=== PATIENT | female | born 1955 | race Caucasian/White ===

== ENCOUNTER 2018-12-24 16:41 | Inpatient (IN) ==
[2018-12-24] MEDS ORDERED: *HR* HYDROcodone/Acet 5/325 mg TABLET PO PRN (19:27)
[2018-12-24] MEDS ORDERED: *HR* OxyCODONE Immed Rel 5 MG TABLET PO PRN (19:27)
[2018-12-24] MEDS ORDERED: Acetaminophen 325 MG TABLET PO PRN (19:27)
[2018-12-24] MEDS ORDERED: Naloxone 0.4 MG/ML INJ IVP PRN (19:27)
[2018-12-24] MEDS: OXYCODONE Oral CONC 10 MG/0.5 ML ORAL.SYG SL PRN (22:25)
--- NOTE | 2018-12-24 23:22 | Internal Med History&Physical ---
Date of Encounter: 12/24/18 Time of Encounter: 21:32 Internal Medicine - H&P: HPI Chief complaint: Right great toe osteomyelitis Admitted From: Hospital to Hospital Transfer Plans for Post Hospital Care: Home History of present illness: Ms. Malloy is a 63 year old female Patient presented to [facility] for increased swelling, redness and pain in her right great toe for about 1 week. She has a history of injury to the toe about 8 months ago, and says that it is never fully healed and the toenail has fallen off. The pain radiates up to her knee, the toe has become dark in color at the tip and then underneath it as well. She has been seeing a doctor in [place] for this prior to moving here to live with her son. She had a temperature at home of 102 the day before admission. She is also noted some pu rulent drainage from the toe as well. She has a history of diabetes and has never had foot infections like this before. In the emergency room patient's vital signs were within normal limits. CBC was also within normal limits. Patient's initial BMP showed a potassium of 3.0 but otherwise no other abnormalities.. Blood sugar was not elevated at 107. A right foot x-ray was performed that showed findings suspicious for osteomyelitis of the first digit. Blood cultures were drawn, and the patient was started on clindamycin and ciprofloxacin. She was transferred to [facility] for further management. Upon my evaluation patient is resting comfortably in hospital bed in no acute distress. She confirms the history above. She denies chest pain, diarrhea and constipation. She has had some nausea and vomiting over the last 3 days but nothing recently. She has some abdominal soreness from vomiting. She moved here to be with her son after her daughter and she got . She admits to partaking in methamphetamine once, but says that she will never try it again. She denies smoking and alcohol use. She has a past medical history of hypertension, diabetes, COPD from secondhand smoke and restless leg syndrome. Family history significant for diabetes and heart disease, as well as lung and kidney cancer in the patient's mother. Her daughter from colon cancer recently. She is a full code. Past Med Surg Social Fam HX - Past Medical History Medical history: arthritis, CHF, diabetes, other Additional medical history: RESTLESS LEGG SYNDROME Psychiatric history: anxiety - Past Surgical History Surgical History: cholecystectomy, hysterectomy, knee replacement Additional surgical history: Discectomy to cervical spine. Cardiac catherization. BOTH KNEE REPLACED. - Social History Smoking Status: Never smoker Smokeless Tobacco Status: No Alcohol use: rarely Drug use: none - Family History Mother Hx Family Cardiac Disorders: Yes Hx Family Respiratory Disorders: Yes Hx Family Cancer: Yes Internal Medicine - H&P: Meds Potassium Chloride [Klor-Con 10] 10 meq PO DAILY 05/28/17 [History] Ropinirole HCl [Requip] 5 mg PO BID 05/28/17 [History] Furosemide [Lasix] 40 mg PO BID 01/11/18 [History] Dulaglutide [Trulicity] 0.75 mg SQ Q7D 12/24/18 [History] Gabapentin [Neurontin] 800 mg PO TID 12/24/18 [History] Allergy/AdvReac Type Severity Reaction Status Date / Time No Known Allergies Allergy Verified 11/15/18 15:11 All Systems PM: A 10-system review of systems was performed and is negative for pertinent findings except as documented above in the HPI. - Constitutional Vitals: Temp Pulse Resp BP Pulse Ox 97.8 F 57 17 115/73 96 12/24/18 23:15 12/24/18 23:15 12/24/18 23:15 12/24/18 23:15 12/24/18 23:15 General appearance: Present: cooperative, A&O X 3, pleasant, no acute distress, answers questions appropriately Exam: - - Head Head exam: Present: normal inspection - Eye Eye exam: Present: EOMI, normal appearance - Respiratory Respiratory exam: Present: CTAB. Absent: rales, respiratory distress, rhonchi, wheezes - Cardiovascular Cardiovascular exam: Present: RRR. Absent: diastolic murmur, systolic murmur - GI/Abdominal GI/Abdominal exam: Present: normal bowel sounds, soft, tenderness Additional comments: Epigastric tenderness with palpation - Extremities Exam Extremities exam: Present: tenderness, warm, radial pulses palpable and symmetrical. Absent: pedal edema Additional comments: Right great toe tenderness, mild tenderness up the leg to knee - Neurological Exam Neurological exam: Present: no focal deficits, strengths equal and symetr throughout. Absent: motor sensory deficit, facial droop, speech deficit - Skin Skin exam: Present: dry, normal color, warm. Absent: erythema Additional comments: Right great toe wrapped in dressing. - Assessment and Plan (1) Osteomyelitis Current Visit: No Status: Acute Assessment and plan: As seen on patient's foot x-ray. Blood cultures were drawn and patient was started on clindamycin and ciprofloxacin. Follow-up blood cultures when available Continue antibiotic therapy Podiatry consult in the morning Pain management as needed Qualifiers: Osteomyelitis type: unspecified type Osteomyelitis location: foot Laterality: right Qualified Code(s): M86.9 - Osteomyelitis, unspecified (2) Pain of right great toe Current Visit: No Status: Acute Assessment and plan: Secondary to osteomyelitis. Sublingual oxycodone as needed Treatment of osteomyelitis as above (3) Diabetes Current Visit: Yes Status: Acute Assessment and plan: Patient is not an insulin dependent diabetic Monitor sugars every 6 hours Diabetic diet until midnight, then nothing by mouth Low dose insulin sliding scale as needed Hold home meds. Qualifiers: Diabetes mellitus type: type 2 Diabetes mellitus penitentiary insulin use: without terminal operations manager use Diabetes mellitus complication status: with skin complications Diabetes mellitus complication detail: with foot ulcer Qualified Code(s): E11.621 - Type 2 diabetes mellitus with foot ulcer; L97.509 - Non-pressure chronic ulcer of other part of unspecified foot with unspecified severity (4) Restless leg syndrome Current Visit: Yes Status: Acute Assessment and plan: Chronic, patient takes ropinirole and gabapentin. Continue home meds (5) Diabetic neuropathy Current Visit: Yes Status: Acute Assessment and plan: Chronic, patient has decreased sensation in her lower extremities secondary to diabetes. Patient takes gabapentin at home. Continue home meds Qualifiers: Diabetes mellitus type: type 2 Diabetes mellitus complication detail: di abetic polyneuropathy Qualified Code(s): E11.42 - Type 2 diabetes mellitus with diabetic polyneuropathy (6) DVT prophylaxis Current Visit: Yes Status: Acute Assessment and plan: SCDs - Time Spent With Patient Total time spent is greater than 50% in coordination of care (as documented) at patient's floor/unit and/or counseling patient: Greater than 35 minutes
[2018-12-24] MEDS ORDERED: NON-FORMULARY MEDICATION 1 EACH EACH (Ropinirole Hcl [Requip] 5 MG) PO SCH (23:30)
[2018-12-25] MEDS: Gabapentin 400 MG CAPSULE PO SCH ×4 (00:34→21:34)
[2018-12-25] MEDS: rOPINIRole 3 MG, rOPINIRole 2 MG PO SCH ×3 (00:34→21:34)
[2018-12-25] MEDS: Clindamycin 900 MG/50 ML 900 MG/50 ML IV.SOLN IVPB SCH ×4 (00:34→23:45)
[2018-12-25 02:05] LABS: Hemoglobin 11.5 g/dL (11.5-15.4); Mean Corpuscular HGB Conc 33.8 g/dL (31.6-35.5); Mean Corpuscular Hemoglobin 29.7 pg (28.0-33.3); Mean Corpuscular Volume 87.9 fL (83.0-100.0); Mean Platelet Volume 9.6 fL (9.4-12.4); Platelet Count 194 K/mcL (140-400); Red Blood Count 3.87 M/mcL (3.82-4.97); Red Cell Distribution Width 13.7 % (11.5-14.5)
[2018-12-25 02:26] LABS: BUN/Creatinine Ratio 20 (6-26); Blood Urea Nitrogen 13 mg/dL (8-23); Calcium 8.8 mg/dL (8.6-10.3); Carbon Dioxide 25 mEq/L (23-29); Chloride 106 mEq/L (98-107); Glucose 120 mg/dL (70-105); Osmolality,Calculated 291 (280-300); Potassium 3.1 mEq/L (3.5-5.1); Sodium 140 mEq/L (136-145); eGFR For Non-African Americans > 60 (> 60)
[2018-12-25] MEDS ORDERED: Potassium Chloride 40 MEQ, Lidocaine 1% 2 ML in D5% in Water 500 ML IVPB ONE (02:30)
[2018-12-25 05:46] LABS: Magnesium 1.7 mg/dL (1.6-2.6)
--- NOTE | 2018-12-25 08:31 | Internal Med Progress Note ---
Hospitalist Progress Note - Encounter Date of Encounter: 12/25/18 Time of Encounter: 08:12 - Subjective Interval History: Patient seen and examined this morning it was. No acute overnight events. Complains of foot pain. No fevers chills nausea or vomiting. Patient sleepy. - Exam Vitals: Temp Pulse Resp BP Pulse Ox 98.4 F 73 16 134/73 95 12/25/18 07:49 12/25/18 07:49 12/25/18 07:49 12/25/18 07:49 12/25/18 07:49 Exam: General: In no acute distress. Respiratory exam: CTAB. no accessory muscle use, rales, rhonchi, wheezes Cardiovascular exam: RRR, +S1, +S2. no murmur, gallop, rubs. GI/Abdominal exam: Non-tender, Non-distended, normal bowel sounds, soft, no peritoneal signs. Extremities exam: no pedal edema, pulses palpable in b/l lower extremities. no calf tenderness Neurological exam: CN II-XII intact, AO X3, no focal deficits. Skin exam: Rt hallux ulcer without purulent drainage, mild tenderness. mild 2nd toe blackening. - Summary of Assessment and Plan Summary of Assessment and Plan: Rt toe ulcer - CXR suspcicous of osteomyelitis - Started on IV clindamycin and ciprofloxacin. continue for now. - Podiatry following. recommendation appreciated. CRP 17. MRI ordered to evaluate for osteomyelitis. Diabetes - c/w accuchecks and sliding scale Restless leg syndrome c/w home ropinirole Diabetic neuropathy - c/w home gabapentin DVT prophylaxis - SCDs - Time Spent with Patient Total time spent is greater than 50% in coordination of care (as documented) at patient's floor/unit and/or counseling patient: Internal Medicine: Result - Labs CBC & Chem 7: 12/25/18 01:44 12/25/18 01:44 Labs: Short CBC 12/25/18 Range/Units 01:44 WBC 5.5 (4.3-11.1) K/mcL Hgb 11.5 D (11.5-15.4) g/dL Hct 34.0 L (35.3-44.9) % Plt Count 194 (140-400) K/mcL BMP 12/25/18 01:44 Sodium 140 Potassium 3.1 L Chloride 106 Carbon Dioxide 25 BUN 13 Creatinine 0.64 Glucose 120 H Calcium 8.8 Consult Discharge Plan - Plan Referrals: NONE,PCP [Primary Care Provider] -
[2018-12-25] MEDS ORDERED: Gadolinium Contrast Agent (WT Based) IV PRN (09:08)
--- NOTE | 2018-12-25 09:14 | Podiatry Consult Note ---
Date of Encounter: 12/25/18 Time of Encounter: 09:11 Assessment and Plan (1) Diabetic infection of right foot Current visit: No Status: Acute 1. Patient evaluated and treated. She has an apparent acute on chronic right foot ulcer with infection. She is stable at this time, but appears that her symptoms on admission showed more systemic infection. It is unclear if she has been treated for osteomyelitis in the past. ESR and CRP ordered today. Will also order MRI to evaluate for possible abscess to the hallux and any evidence of osteomyelitis. Xray reviewed which shows no evidence of acute osseous injury, osteomyelitis, or soft tissue gas. Will determine surgical options vs local wound care after reviewing MRI and inflammatory markers. Continue with local wound care including betadine with dry dressing daily and IV antibiotics. Code(s): E11.628 - Type 2 diabetes mellitus with other skin complications; L08.9 - Local infection of the skin and subcutaneous tissue, unspecified SNOMED Code(s): 59364826 History of Present Illness Chief complaint: right foot wound infection HPI: Ms. Malloy is a 63 year old female presenting to [facility] with a chronic right 1st toe wound and infection. She reports that approximately 7 months ago she broke her toe, and 4 months ago a wound developed. She states that she was getting local wound care by a hemodialysis charge nurse in [place] and completed multiple rounds of antibiotics and local wound care. She reports that she had nausea and fever when admitted, but states she feels better now that she is in the hospital. She reports sharp pain and swelling to the right 1st toe. She reports cellulitis to her foot and ankle prior to starting IV antibiotics. She states that she would elect to have surgery if this meant the infection would not spread up her leg. She reports that her blood glucose level usually runs in the 130s. Past Med Surg Social Fam HX - Past Medical History Medical history: arthritis, CHF, diabetes, other Additional medical history: RESTLESS LEGG SYNDROME Psychiatric history: anxiety - Past Surgical History Surgical History: cholecystectomy, hysterectomy, knee replacement Additional surgical history: Discectomy to cervical spine. Cardiac catherization. BOTH KNEE REPLACED. - Social History Smoking Status: Never smoker Smokeless Tobacco Status: No Alcohol use: rarely Drug use: none - Family History Mother Hx Family Cardiac Disorders: Yes Hx Family Respiratory Disorders: Yes Hx Family Cancer: Yes Medications and Allergies Potassium Chloride [Klor-Con 10] 10 meq PO DAILY 05/28/17 [History] Ropinirole HCl [Requip] 5 mg PO BID 05/28/17 [History] Furosemide [Lasix] 40 mg PO BID 01/11/18 [History] Dulaglutide [Trulicity] 0.75 mg SQ Q7D 12/24/18 [History] Gabapentin [Neurontin] 800 mg PO TID 12/24/18 [History] Allergy/AdvReac Type Severity Reaction Status Date / Time No Known Allergies Allergy Verified 11/15/18 15:11 All Systems Reviewed: The remainder of the systems were reviewed and are negative Physical Exam - Constitutional Vitals: Temp Pulse Resp BP Pulse Ox 98.4 F 73 16 134/73 95 12/25/18 07:49 12/25/18 07:49 12/25/18 07:49 12/25/18 07:49 12/25/18 07:49 Exam: Alert, oriented x3, no acute distress. Vascular: DP and PT 2+ bilaterally. Capillary refill less than 3 seconds to all digits. Skin temperature warm to touch right hallux. Dermatology: Right hallux with full thickness ulceration and fat layer exposed 1.5cm x 2.0cm x 0.3cm. Periwound erythema to the level of IPJ of the hallux. Hyperkeratotic tissue at the wound margin. No probe to bone. No active drainage. Musculoskeletal: Tenderness right hallux with palpation. Possible fluctuance at plantar hallux. No crepitus. Moderate edema to the right hallux. Neuro: Sensations intact to light touch bilateral lower extremity. Results - Labs Result Diagrams: 12/25/18 01:44 12/25/18 01:44 Labs: Abnormal lab results Hct 34.0 % (35.3-44.9) L 12/25/18 01:44 Potassium 3.1 mEq/L (3.5-5.1) L 12/25/18 01:44 Glucose 120 mg/dL (70-105) H 12/25/18 01:44 POC Glucose 175 mg/dL (70-99) H 12/24/18 21:32 H & H 12/25/18 Range/Units 01:44 Hgb 11.5 D (11.5-15.4) g/dL Hct 34.0 L (35.3-44.9) % All other labs normal. Consult Discharge Plan - Plan Referrals: NONE,PCP [Primary Care Provider] -
[2018-12-25 09:30] LABS: C-Reactive Protein 17 mg/L (Less than 10)
[2018-12-25] MEDS: OXYCODONE Oral CONC 10 MG/0.5 ML ORAL.SYG SL PRN (20:19)
[2018-12-25 20:28] LABS: BUN/Creatinine Ratio 17 (6-26); Blood Urea Nitrogen 11 mg/dL (8-23); Calcium 9.5 mg/dL (8.6-10.3); Carbon Dioxide 30 mEq/L (23-29); Chloride 104 mEq/L (98-107); Glucose 103 mg/dL (70-105); Osmolality,Calculated 290 (280-300); Potassium 4.3 mEq/L (3.5-5.1); Sodium 140 mEq/L (136-145); eGFR For Non-African Americans > 60 (> 60)
[2018-12-26 06:20] LABS: Basophils # 0.1 K/mcL (0.0-0.2); Basophils % 1.1 %; Eosinophils # 0.4 K/mcL (0.0-0.6); Eosinophils % 8.3 %; Hematocrit 36.6 % (35.3-44.9); Hemoglobin 11.9 g/dL (11.5-15.4); Immature Granulocytes % 0.4 % (0-4); Lymphocytes # 2.1 K/mcL (0.6-4.6); Lymphocytes % 46.4 %; Mean Corpuscular HGB Conc 32.5 g/dL (31.6-35.5); Mean Corpuscular Volume 89.1 fL (83.0-100.0); Mean Platelet Volume 9.5 fL (9.4-12.4); Monocytes # 0.3 K/mcL (0.0-1.3); Monocytes % 7.6 %; Neutrophils # 1.6 K/mcL (1.6-8.9); Platelet Count 186 K/mcL (140-400); Red Blood Count 4.11 M/mcL (3.82-4.97); Red Cell Distribution Width 13.6 % (11.5-14.5); Segmented Neutrophils % 36.2 %
[2018-12-26 06:37] LABS: BUN/Creatinine Ratio 15 (6-26); Blood Urea Nitrogen 9 mg/dL (8-23); Calcium 9.3 mg/dL (8.6-10.3); Carbon Dioxide 29 mEq/L (23-29); Chloride 105 mEq/L (98-107); Glucose 109 mg/dL (70-105); Osmolality,Calculated 287 (280-300); Potassium 3.7 mEq/L (3.5-5.1); Sodium 139 mEq/L (136-145); eGFR For Non-African Americans > 60 (> 60)
[2018-12-26] MEDS: Gabapentin 400 MG CAPSULE PO SCH ×3 (08:42→21:44)
[2018-12-26] MEDS: rOPINIRole 3 MG, rOPINIRole 2 MG PO SCH ×2 (08:42→21:45)
--- NOTE | 2018-12-26 11:21 | Internal Med Progress Note ---
Hospitalist Progress Note - Encounter Date of Encounter: 12/26/18 Time of Encounter: 11:15 - Subjective Interval History: Patient seen and examined this morning at bedside. No acute overnight events. Drowsiness morning. Did get pain medication. However easily arousable and alert and oriented. Currently pain is tolerable denies any nausea vomiting f antonio or chills. Denies any constipation or diarrhea or urinary complaints. - Exam Vitals: Temp Pulse Resp BP Pulse Ox 97.4 F L 62 15 122/78 96 12/26/18 07:54 12/26/18 07:54 12/26/18 07:54 12/26/18 07:54 12/26/18 07:54 Exam: General: In no acute distress. Respiratory exam: CTAB. no accessory muscle use, rales, rhonchi, wheezes Cardiovascular exam: RRR, +S1, +S2. no murmur, gallop, rubs. GI/Abdominal exam: Non-tender, Non-distended, normal bowel sounds, soft, no peritoneal signs. Extremities exam: no pedal edema, pulses palpable in b/l lower extremities. no calf tenderness Neurological exam: CN II-XII intact, AO X3, no focal deficits. Skin exam: Rt hallux ulcer without purulent drainage, mild tenderness. mild 2nd toe blackening. - Summary of Assessment and Plan Summary of Assessment and Plan: Rt toe ulcer - MRI with osteomyelitis of distal phalanx of 1st digit - c/w clindamycin and ciprofloxacin. Will consult Infectious disease. - Podiatry following. recommendation appreciated. - Decrease pain regimen Diabetes - c/w accuchecks and sliding scale Restless leg syndrome c/w home ropinirole Diabetic neuropathy - c/w home gabapentin DVT prophylaxis - SCDs - Time Spent with Patient Total time spent is greater than 50% in coordination of care (as documented) at patient's floor/unit and/or counseling patient: Internal Medicine: Result - Labs CBC & Chem 7: 12/26/18 05:44 12/26/18 05:44 Labs: Short CBC 12/26/18 Range/Units 05:44 WBC 4.5 (4.3-11.1) K/mcL Hgb 11.9 (11.5-15.4) g/dL Hct 36.6 (35.3-44.9) % Plt Count 186 (140-400) K/mcL Neutrophils # 1.6 (1.6-8.9) K/mcL BMP 12/25/18 12/26/18 19:48 05:44 Sodium 140 139 Potassium 4.3 D 3.7 Chloride 104 105 Carbon Dioxide 30 H 29 BUN 11 9 Creatinine 0.64 0.59 L Glucose 103 109 H Calcium 9.5 9.3 - Impressions Impressions Foot MRI 12/26/18 09:08 IMPRESSION: 1. Ulceration and sinus tract with subjacent partial osseous destruction and osteomyelitis of the tuft of the distal phalanx of the 1st digit. 2. Cellulitis of the right great toe and remainder of the foot. Mild myositis of the visualized intertarsal musculature. No discrete organized fluid collection identified. 3. Marrow edema within the 4th metatarsal diaphysis, likely stress related marrow edema. No displaced stress fracture identified at this point. Mild marrow edema to a lesser degree at the proximal 2nd and 3rd metatarsals likely degenerative. 4. Degenerative changes as detailed above. The findings were sent to the Radiology Results [facility] at 7:58 am on 12/26/2018 to be communicated to a licensed caregiver. D/ / 12/26/2018 08:26:53 Gabriel Duval MD / [email or web address] Interpreting Provider: Gabriel Duval MD - VTE Documentation of Mechanical Device: Intermittent pneumatic compression device Consult Discharge Plan - Plan Referrals: NONE,PCP [Primary Care Provider] -
--- NOTE | 2018-12-26 11:54 | Infectious Disease Consult ---
Date of Encounter: 12/26/18 Time of Encounter: 11:52 Assessment and Plan (1) Osteomyelitis Status: Acute Assessment and plan: Location: Right great toe. Causative organism: Unclear. Likely secondary to chronic nonhealing diabetic foot ulcer. X-ray of the right foot showed findings consistent with osteoarthritis of the first digit. 5 right foot showed findings consistent with osteo-myelitis of the distal phalanx of the first digit and cellulitis. ESR elevated at 52 with a CRP of 17. Podiatry consult. Planning for operative intervention tomorrow. Please send specimens for pathology and culture (aerobic, anaerobic, AFB, and fungal). Currently on clindamycin and Cipro. Recommendations: Await blood cultures. Await intra-op findings/cultures. Wound care and activity per the Podiatry team. Recommend psychiatry to evaluate. Discontinue Clindamycin and Cipro. No sepsis criteria. Hold additional antibiotics until cultures obtained tomorrow. If the patient becomes febrile/takes a turn to the worse, re-start antibiotics as beliw. Start Vancomycin IV post-op. Pharmacy to dose. Goal trough ~15. Start Zosyn 3.375 g IV every 8 hours post-op. Duration of treatment depends on the clinical picture, but likely total 6 weeks. Monitor renal function for drug toxicity and is just antibiotics. radiology services manager to assist with discharge planning. Avoid insertion of long-term IV access until final antibiotic regimen is determined. Qualifiers: Osteomyelitis type: unspecified type Osteomyelitis location: foot Laterality: right Qualified Code(s): M86.9 - Osteomyelitis, unspecified (2) Diabetic infection of right foot Status: Acute Assessment and plan: Location: Right foot great toe. Causative organism: Unclear. Likely secondary to chronic non-healing ulcer. Podiatry consulted. Currently on Clinda and Cipro. (3) Diabetic neuropathy Status: Acute Qualifiers: Diabetes mellitus type: type 2 Diabetes mellitus complication detail: diabetic polyneuropathy Qualified Code(s): E11.42 - Type 2 diabetes mellitus with diabetic polyneuropathy (4) Restless leg syndrome Status: Acute (5) Diabetes Status: Acute Qualifiers: Diabetes mellitus type: type 2 Diabetes mellitus terminal manager insulin use: without terminal manager use Diabetes mellitus complication status: with skin complications Diabetes mellitus complication detail: with foot ulcer Qual ified Code(s): E11.621 - Type 2 diabetes mellitus with foot ulcer; L97.509 - Non-pressure chronic ulcer of other part of unspecified foot with unspecified severity (6) Depression Status: Acute Assessment and plan: The patient states she was on antidepressant medications prior to coming to [place]. She states she has not had her medications for about 4 months she came here. Consider psychiatry to evaluate. Qualifiers: Depression Type: unspecified Qualified Code(s): F32.9 - Major depressive disorder, single episode, unspecified Infectious Disease HPI - Data of Consult Patient: new to practice Consult date: 12/26/18 Requesting Physician: Alina Clark MD Primary Care Provider: PCP NONE - Consult Narrative Reason for consult: Right foot infection History of present illness: Ms. Malloy is a 63 year old female with a past medical history CHF, COPD, diabetes with neuropathy, GERD, hypertension, restless leg syndrome, bilateral total knee replacements. The patient was admitted to the hospital 12/24/18 for right great toe infection. We are consulted 12/26/18 for further workup and treatment recommendations for right foot infection. Briefly, the patient is a 63-year-old female with a past medical history as stated above. The patient presented to [facility] for evaluation of right great toe infection after she noticed increased redness, pain, and swelling for the past week or so. The day prior to presentation, she developed a fever of 102 with nausea with vomiting. Upon arrival, she was afebrile and hemodynamically stable. Her white blood cell count is normal. Lactic acid and renal function were within normal limits. Right foot x-ray showed osteo-myelitis of the first digit. Blood cultures were obtained 2 sets are no growth to date. She was started on Cipro and clindamycin and transferred here for further evaluation. Since admission, the patient has remained afebrile and hemodynamically stable. Her ESR was elevated at 52 with a CRP of 17. She was evaluated by podiatry who recommended MRI that showed osteoarthritis of the distal phalanx of the first digit and cellulitis. Currently, she is on Cipro and clindamycin. We have been asked to evaluate and make further recommendations. During my exam today, the patient states that about 8 months ago she sustained an injury to the right great toe that resulted in a fracture. She states she was seen in [place] by a provider twice and given antibiotics by mouth. She states since then she continues to have some issues with nonhealing of the wound . Over the past 2 weeks she states she has had increased pain and redness and swelling with some purulent drainage on the distal tip of the toe. She reports fevers that started 2 days prior to admission. Reports some chills and rigors associated with the fevers. Denies any congestion, earache, or sore throat. Denies chest pain, shortness of breath, or cough. Reports some nausea with vomiting 1 the day prior to admission. She reports some nausea this morning. She complains of pain in the right foot and states her some redness streaking up her leg. She states her appetite has been okay. She states her blood sugars are well-controlled. She denies any oral thrush or new skin lesions except as mentioned above. She does tell me that she is typically treated for depression, but states she has not had her medication since she moved here. The patient lives at home with her son. She moved here about 4 months ago after her daughter . She is not working outside the home. She states she used methamphetamine once and is very ashamed that she use it and swears she will never do it again. She denies any tobacco or alcohol use. She normally resides in [place] and is planning on going back there after her surgery because she does not want to live with her son anymore. She states there are dogs in the home where she lives currently, but denies any bites or scratches. She denies any chronic infectious diseases. CC: Alina Clark MD Past Med Surg Social Fam HX - Past Medical History Attestation: Yes The following information was validated with the patient. Source: patient, old records reviewed, nursing notes reviewed Medical history: arthritis, CHF, diabetes, other Additional medical history: RESTLESS LEGG SYNDROME Psychiatric history: anxiety - Past Surgical History Surgical History: cholecystectomy, hysterectomy, knee replacement Additional surgical history: Discectomy to cervical spine. Cardiac catherization. BOTH KNEE REPLACED. - Social History Smoking Status: Never smoker Smokeless Tobacco Status: No Alcohol use: rarely Drug use: none - Family History Mother Hx Family Cardiac Disorders: Yes Hx Family Respiratory Disorders: Yes Hx Family Cancer: Yes Infectious Disease-CN:Meds Potassium Chloride [Klor-Con 10] 10 meq PO DAILY 05/28/17 [History] Ropinirole HCl [Requip] 5 mg PO BID 05/28/17 [History] Furosemide [Lasix] 40 mg PO BID 01/11/18 [History] Dulaglutide [Trulicity] 0.75 mg SQ FR 12/24/18 [History] Gabapentin [Neurontin] 800 mg PO TID 12/24/18 [History] Allergy/AdvReac Type Severity Reaction Status Date / Time No Known Allergies Allergy Verified 12/25/18 15:47 All systems: reviewed and no additional remarkable complaints except as stated Exam - Constitutional Vitals: Temp Pulse Resp BP Pulse Ox 98.8 F 75 14 152/79 94 12/26/18 11:34 12/26/18 11:34 12/26/18 11:34 12/26/18 11:34 12/26/18 11:34 Infectious Disease CN: Results - Labs CBC & Chem 7: 12/26/18 05:44 12/26/18 05:44 Serology: Serology 12/26/18 12/26/18 12/25/18 Range/Units 05:44 05:44 19:48 WBC 4.5 (4.3-11.1) K/mcL RBC 4.11 (3.82-4.97) M/mcL Hgb 11.9 (11.5-15.4) g/dL Hct 36.6 (35.3-44.9) % MCV 89.1 (83.0-100.0) fL MCH 29.0 (28.0-33.3) pg MCHC 32.5 (31.6-35.5) g/dL RDW 13.6 (11.5-14.5) % Plt Count 186 (140-400) K/mcL MPV 9.5 (9.4-12.4) fL Immature Gran % 0.4 (0-4) % Seg Neutrophils % 36.2 % Lymphocytes % 46.4 % Monocytes % 7.6 % Eosinophils % 8.3 % Basophils % 1.1 % Neutrophils # 1.6 (1.6-8.9) K/mcL Lymphocytes # 2.1 (0.6-4.6) K/mcL Monocytes # 0.3 (0.0-1.3) K/mcL Eosinophils # 0.4 (0.0-0.6) K/mcL Basophils # 0.1 (0.0-0.2) K/mcL ESR (0-15) mm/hr Sodium 139 140 (136-145) mEq/L Potassium 3.7 4.3 D (3.5-5.1) mEq/L Chloride 105 104 (98-107) mEq/L Carbon Dioxide 29 30 H (23-29) mEq/L BUN 9 11 (8-23) mg/dL Creatinine 0.59 L 0.64 (0.60-1.20) mg/dL Est GFR ( Amer) > 60 > 60 (> 60) Est GFR (Non-Af Amer) > 60 > 60 (> 60) BUN/Creatinine Ratio 15 17 (6-26) Glucose 109 H 103 (70-105) mg/dL POC Glucose (70-99) mg/dL Calculated Osmolality 287 290 (280-300) Calcium 9.3 9.5 (8.6-10.3) mg/dL Magnesium (1.6-2.6) mg/dL C-Reactive Protein (Less than 10) mg/L 12/25/18 12/25/18 12/25/18 Range/Units 19:13 16:24 11:54 WBC (4.3-11.1) K/mcL RBC (3.82-4.97) M/mcL Hgb (11.5-15.4) g/dL Hct (35.3-44.9) % MCV (83.0-100.0) fL MCH (28.0-33.3) pg MCHC (31.6-35.5) g/dL RDW (11.5-14.5) % Plt Count (140-400) K/mcL MPV (9.4-12.4) fL Immature Gran % (0-4) % Seg Neutrophils % % Lymphocytes % % Monocytes % % Eosinophils % % Basophils % % Neutrophils # (1.6-8.9) K/mcL Lymphocytes # (0.6-4.6) K/mcL Monocytes # (0.0-1.3) K/mcL Eosinophils # (0.0-0.6) K/mcL Basophils # (0.0-0.2) K/mcL ESR (0-15) mm/hr Sodium (136-145) mEq/L Potassium (3.5-5.1) mEq/L Chloride (98-107) mEq/L Carbon Dioxide (23-29) mEq/L BUN (8-23) mg/dL Creatinine (0.60-1.20) mg/dL Est GFR ( Amer) (> 60) Est GFR (Non-Af Amer) (> 60) BUN/Creatinine Ratio (6-26) Glucose (70-105) mg/dL POC Glucose 104 H 97 95 (70-99) mg/dL Calculated Osmolality (280-300) Calcium (8.6-10.3) mg/dL Magnesium (1.6-2.6) mg/dL C-Reactive Protein (Less than 10) mg/L 12/25/18 12/25/18 12/25/18 Range/Units 07:47 01:44 01:44 WBC (4.3-11.1) K/mcL RBC (3.82-4.97) M/mcL Hgb (11.5-15.4) g/dL Hct (35.3-44.9) % MCV (83.0-100.0) fL MCH (28.0-33.3) pg MCHC (31.6-35.5) g/dL RDW (11.5-14.5) % Plt Count (140-400) K/mcL MPV (9.4-12.4) fL Immature Gran % (0-4) % Seg Neutrophils % % Lymphocytes % % Monocytes % % Eosinophils % % Basophils % % Neutrophils # (1.6-8.9) K/mcL Lymphocytes # (0.6-4.6) K/mcL Monocytes # (0.0-1.3) K/mcL Eosinophils # (0.0-0.6) K/mcL Basophils # (0.0-0.2) K/mcL ESR 52 H (0-15) mm/hr Sodium 140 (136-145) mEq/L Potassium 3.1 L (3.5-5.1) mEq/L Chloride 106 (98-107) mEq/L Carbon Dioxide 25 (23-29) mEq/L BUN 13 (8-23) mg/dL Creatinine 0.64 (0.60-1.20) mg/dL Est GFR ( Amer) > 60 (> 60) Est GFR (Non-Af Amer) > 60 (> 60) BUN/Creatinine Ratio 20 (6-26) Glucose 120 H (70-105) mg/dL POC Glucose 106 H (70-99) mg/dL Calculated Osmolality 291 (280-300) Calcium 8.8 (8.6-10.3) mg/dL Magnesium 1.7 (1.6-2.6) mg/dL C-Reactive Protein 17 H (Less than 10) mg/L 12/25/18 12/24/18 Range/Units 01:44 21:32 WBC 5.5 (4.3-11.1) K/mcL RBC 3.87 (3.82-4.97) M/mcL Hgb 11.5 D (11.5-15.4) g/dL Hct 34.0 L (35.3-44.9) % MCV 87.9 (83.0-100.0) fL MCH 29.7 (28.0-33.3) pg MCHC 33.8 (31.6-35.5) g/dL RDW 13.7 (11.5-14.5) % Plt Count 194 (140-400) K/mcL MPV 9.6 (9.4-12.4) fL Immature Gran % (0-4) % Seg Neutrophils % % Lymphocytes % % Monocytes % % Eosinophils % % Basophils % % Neutrophils # (1.6-8.9) K/mcL Lymphocytes # (0.6-4.6) K/mcL Monocytes # (0.0-1.3) K/mcL Eosinophils # (0.0-0.6) K/mcL Basophils # (0.0-0.2) K/mcL ESR (0-15) mm/hr Sodium (136-145) mEq/L Potassium (3.5-5.1) mEq/L Chloride (98-107) mEq/L Carbon Dioxide (23-29) mEq/L BUN (8-23) mg/dL Creatinine (0.60-1.20) mg/dL Est GFR ( Amer) (> 60) Est GFR (Non-Af Amer) (> 60) BUN/Creatinine Ratio (6-26) Glucose (70-105) mg/dL POC Glucose 175 H (70-99) mg/dL Calculated Osmolality (280-300) Calcium (8.6-10.3) mg/dL Magnesium (1.6-2.6) mg/dL C-Reactive Protein (Less than 10) mg/L - VTE Documentation of Mechanical Device: Intermittent pneumatic compression device Consult Discharge Plan - Plan Referrals: NONE,PCP [Primary Care Provider] - - Attending Attestation I have personally performed a face to face evaluation on this patient. I have reviewed and agree with the care plan. History and Exam by me shows: Assessment and plan: 1.osteomyelitis of the right great toe causative organism not clear 2.diabetic foot ulcer 3.diabetic neuropathy 4.depression 5. Restless leg syndrome Await blood cultures. Await intra-op findings/cultures. Wound care and activity per the Podiatry team. Discontinue Clindamycin and Cipro. Start Vancomycin IV post-op. Pharmacy to dose. Goal trough ~15. Start Zosyn 3.375 g IV every 8 hours post-op. Duration of treatment depends on the clinical picture, but likely total 6 weeks. Monitor renal function for drug toxicity and is just antibiotics.
--- NOTE | 2018-12-26 12:59 | Podiatry Progress Note ---
Date of Encounter: 12/26/18 Time of Encounter: 11:50 - Assessment and Plan (1) Diabetic infection of right foot Current Visit: No Status: Acute Assessment: -Right hallux with full thickness ulceration and fat layer exposed 1.5cm x 2.0cm x 0.3cm. Periwound erythema to the level of IPJ of the hallux. Hyperkeratotic tissue at the wound margin. No probe to bone. No active drainage. -Right #2 with necrotic tissue distal aspect. -2/4 PT/DP pulses -Cap refill immediate to all digits -ESR 52, CRP 17 -WBC 4.5 -MRI showed evidence of: 1. Ulceration and sinus tract with subjacent partial osseous destruction and osteomyelitis of the tuft of the distal phalanx of the 1st digit. 2. Cellulitis of the right great toe and remainder of the foot. Mild myositis of the visualized intertarsal musculature. No discrete organized fluid collection identified. 3. Marrow edema within the 4th metatarsal diaphysis, likely stress related marrow edema. No displaced stress fracture identified at this point. Mild marrow edema to a lesser degree at the proximal 2nd and 3rd metatarsals likely degenerative. 4. Degenerative changes as detailed above. Plan: -Site flushed with sterile .9NS and pat dry -Betadine dry dressing applied using 4x4 and Kerlix, secured with tape -Patient to have I&D right 1st toe possible amputation with Dr. Bernal tomorrow 12/27/2018 -NPO after midnight -Will continue to monitor Subjective Interval history: Patient resting, aroused easily with verbal stimuli, oriented x 3. No acute distress noted. Patient denies any chest pain or shortness of breath. She does report pain right lower extremity that has been there for weeks. She denies any fever, chills, nausea, vomiting, or diarrhea. Objective - Vital Signs Vital Signs: Vital Signs Temp Pulse Resp BP Pulse Ox 12/26/18 11:34 98.8 F 75 14 152/79 94 12/26/18 07:54 97.4 F L 62 15 122/78 96 12/26/18 04:40 97.7 F 66 17 129/82 94 12/25/18 23:36 97.4 F L 69 16 135/80 97 12/25/18 19:10 98.1 F 68 14 135/83 98 12/25/18 16:25 98.8 F 79 16 144/89 98 Intake and Output 12/25/18 12/26/18 12/26/18 23:59 07:59 15:59 Intake Total 700 / 700 148.5 / 148.5 340 / 340 Balance 700 / 700 148.5 / 148.5 340 / 340 Intake: IV Fluids 250 / 250 148.5 / 148.5 100 / 100 Cipro Premix 400 MG/200 ML 400 200 / 200 98.5 / 98.5 100 / 100 mg In 200 ml @ 200 mls/hr IVPB Q[facility]HR [facility] Rx#:[id number] Cleocin Premix 900 MG/50 ML 900 50 / 50 50 / 50 mg In 50 ml @ 50 mls/hr IVPB Q8HR [facility] Rx#:[id number] Oral 450 / 450 240 / 240 Other: Meal Dinner Breakfast Percent of Meal Consumed 75% 80% # Voids 1 Weight 84.2 kg Blood Glucose* 104 93 - Exam Exam: Constitutional: Resting, aroused easily, oriented x 3, no acute distress noted Vascular: 2/4 DP/PT pulses bilaterally. Cap refill immediate to all digits. Skin warm from toes to tibia. Neurological: Sensation diminished bilateral lower extremities, proprioception abnormal dorsiflexion/plantar flexion Dermatological: Right hallux with full thickness ulceration and fat layer exp osed 1.5cm x 2.0cm x 0.3cm. Periwound erythema to the level of IPJ of the hallux. Hyperkeratotic tissue at the wound margin. No probe to bone. No active drainage. Right #2 with necrotic tissue distal aspect. Musculoskeletal: 4/5 muscle strength, normal tone - Lab Result Diagrams: 12/26/18 05:44 12/26/18 05:44 Labs: Abnormal lab results ESR 52 mm/hr (0-15) H 12/25/18 01:44 Creatinine 0.59 mg/dL (0.60-1.20) L 12/26/18 05:44 Glucose 109 mg/dL (70-105) H 12/26/18 05:44 POC Glucose 104 mg/dL (70-99) H 12/25/18 19:13 C-Reactive Protein 17 mg/L (Less than 10) H 12/25/18 01:44 - VTE Documentation of Mechanical Device: Intermittent pneumatic compression device Consult Discharge Plan - Plan Referrals: NONE,PCP [Primary Care Provider] -
--- NOTE | 2018-12-26 18:05 | Anesthesia Evaluation PreOp ---
<Elva Chavez - Last Filed: 12/26/18 21:41> Date of Encounter: 12/26/18 - Past History Planned Operation: I&D right 1st toe possible amputation Cardiac History: CHF Pulmonary History: Asthma CONDUIT WORKER History: Other (restless leg syndrome, depression, diabetic neuropathy) Other Medical History: Diabetes Type II Anesthesia History: Past Anesthesia (cholecystectomy, hysterectomy, knee replacement bilaterally, Discectomy c-spine, cardiac catherization) Alcohol Use: rarely Drug use: none Medications and Allergies Potassium Chloride [Klor-Con 10] 10 meq PO DAILY 05/28/17 [History] Ropinirole HCl [Requip] 5 mg PO BID 05/28/17 [History] Furosemide [Lasix] 40 mg PO BID 01/11/18 [History] Dulaglutide [Trulicity] 0.75 mg SQ FR 12/24/18 [History] Gabapentin [Neurontin] 800 mg PO TID 12/24/18 [History] Allergy/AdvReac Type Severity Reaction Status Date / Time No Known Allergies Allergy Verified 12/25/18 15:47 - Meds/Allergy Pre-op Review Medications Reviewed: Yes Allergies Reviewed: Yes Beta Blockers on Current Med List: No Anesthesia Results - Labs 12/26/18 05:44 12/26/18 05:44 Anesthesia Exam Last Vital Signs Temp 98.0 F 12/26/18 16:49 Pulse 80 12/26/18 16:49 Resp 16 12/26/18 16:49 BP 151/88 12/26/18 16:49 Pulse Ox 95 12/26/18 16:49 Weight: 84 kg <Erich Wasserman - Last Filed: 12/27/18 16:15> Date of Encounter: 12/27/18 Time of Encounter: 16:15 - Past History Cardiac History: CHF Pulmonary History: Asthma CONDUIT WORKER History: Other Other Medical History: Diabetes Type II Anesthesia History: Past Anesthesia : No Alcohol Use: rarely Drug use: none Anesthesia Results - Labs 12/26/18 05:44 12/26/18 05:44 Anesthesia Exam Height: 5'5 NPO (# of Hours): MN Pain Scale: 0 - HEENT Pupil (Motor): Pupils equal, EOMI Mallampati: II Teeth: Normal Oral Opening: Greater than 3 - CONDUIT WORKER LOC: Oriented CONDUIT WORKER Motor: Normal RUE, Normal LUE, Normal RLE, Normal LLE, Normal Face CONDUIT WORKER Sensory: Normal: RUE, LUE, RLE, LLE, Face - Cardiac Rhythm: Regular JVD: No Carotid Bruit: No - Pulmonary Breath Sounds: bilateral Clear Respiratory Effort: Symmetrical Anesthesia Assess/Plan ASA Score: 3 (CHF DM Asthma) Level of consciousness: Cooperative, Oriented Anesthetic Plan: MAC Autologous Blood: No Monitoring Plan: Standard Monitors Recovery Plan: Other (Discussed MAC, possible GA, agrees to proceed)
[2018-12-26] MEDS: OXYCODONE Oral CONC 10 MG/0.5 ML ORAL.SYG SL PRN (21:45)
[2018-12-27] MEDS: OXYCODONE Oral CONC 10 MG/0.5 ML ORAL.SYG SL PRN (07:08)
[2018-12-27] MEDS: Gabapentin 400 MG CAPSULE PO SCH ×3 (09:45→20:43)
[2018-12-27] MEDS: rOPINIRole 3 MG, rOPINIRole 2 MG PO SCH ×2 (09:45→20:44)
--- NOTE | 2018-12-27 10:35 | Infectious Disease Progress No ---
Date of Encounter: 12/27/18 Time of Encounter: 10:32 - Assessment and Plan (1) Osteomyelitis Current Visit: Yes Status: Acute Location: Right great toe. Causative organism: Unclear. Previous wound cultures in November were positive for Enterobacter cloacae and GBS. Likely secondary to chronic nonhealing diabetic foot ulcer. X-ray of the right foot showed findings consistent with osteoarthritis of the first digit. MRI of the right foot showed findings consistent with osteo-myelitis of the distal phalanx of the first digit and cellulitis. ESR elevated at 52 with a CRP of 17. Podiatry consult. Planning for operative intervention later today. Please send specimens for pathology and culture (aerobic, anaerobic, AFB, and fungal). Not currently on any antibiotics. Recommendations: Await blood cultures. Await intra-op findings/cultures. Wound care and activity per the Podiatry team. Recommend psychiatry to evaluate. No sepsis criteria. Hold additional antibiotics until cultures obtained intra- op. If the patient becomes febrile/takes a turn to the worse, re-start antibiotics as below. Start Vancomycin IV post-op. Pharmacy to dose. Goal trough ~15. Start Zosyn 3.375 g IV every 8 hours post-op. Duration of treatment depends on the clinical picture, but likely total 6 weeks. Monitor renal function for drug toxicity and is just antibiotics. visitor services assistant to assist with discharge planning. Avoid insertion of long-term IV access until final antibiotic regimen is determined. Qualifiers: Osteomyelitis type: unspecified type Osteomyelitis location: foot Laterality: right Qualified Code(s): M86.9 - Osteomyelitis, unspecified (2) Diabetic infection of right foot Current Visit: No Status: Acute Location: Right foot great toe. Causative organism: Unclear. Likely secondary to chronic non-healing ulcer. Podiatry consulted. Antibiotics on hold. (3) Diabetic neuropathy Current Visit: Yes Status: Acute Qualifiers: Diabetes mellitus type: type 2 Diabetes mellitus complication detail: diabetic polyneuropathy Qualified Code(s): E11.42 - Type 2 diabetes mellitus with diabetic polyneuropathy (4) Restless leg syndrome Current Visit: Yes Status: Acute (5) Diabetes Current Visit: Yes Status: Chronic Qualifiers: Diabetes mellitus type: type 2 Diabetes mellitus intermediate insulin use: without intermediate use Diabetes mellitus complication status: with skin complications Diabetes mellitus complication detail: with foot ulcer Qualified Code(s): E11.621 - Type 2 diabetes mellitus with foot ulcer; L97.509 - Non-pressure chronic ulcer of other part of unspecified foot with unspecified severity (6) Depression Current Visit: Yes Status: Acute The patient states she was on antidepressant medications prior to coming to [place]. She states she has not had her medications for about 4 months she came here. Consider psychiatry to evaluate. Discussed with the primary team. Qualifiers: Depression Type: unspecified Qualified Code(s): F32.9 - Major depressive disorder, single episode, unspecified - Subjective Interval history: Patient seen and examined. No acute events noted overnight. Patient continues to complain of pain in the right foot and right lower extremity. Reports shortness of breath and cough that are chronic and are at baseline. Reports some nausea this morning, but states she is hungry and would like something to eat. She is currently nothing by mouth for surgery later today. Denies abdominal pain or urinary complaints. States she feels constipated and has not had a bowel movement in 3 days. Denies any oral thrush or new skin lesions. Infect Dis PN-Objective Data - Labs CBC & Chem 7: 12/26/18 05:44 12/26/18 05:44 Labs: Laboratory Results - last 24 hr 12/26/18 12/26/18 12/26/18 07:54 13:00 16:46 POC Glucose 93 115 H 99 12/26/18 12/27/18 20:15 07:57 POC Glucose 137 H 113 H - Impressions Impressions Foot MRI 12/26/18 09:08 IMPRESSION: 1. Ulceration and sinus tract with subjacent partial osseous destruction and osteomyelitis of the tuft of the distal phalanx of the 1st digit. 2. Cellulitis of the right great toe and remainder of the foot. Mild myositis of the visualized intertarsal musculature. No discrete organized fluid collection identified. 3. Marrow edema within the 4th metatarsal diaphysis, likely stress related marrow edema. No displaced stress fracture identified at this point. Mild marrow edema to a lesser degree at the proximal 2nd and 3rd metatarsals likely degenerative. 4. Degenerative changes as detailed above. The findings were sent to the Radiology Results Communication Center at 7:58 am on 12/26/2018 to be communicated to a licensed caregiver. D/ / 12/26/2018 08:26:53 Gabriel Duval MD / [email or web address] Interpreting Provider: Gabriel Duval MD Exam - Constitutional Vitals: Temp Pulse Resp BP Pulse Ox 97.9 F 76 14 150/88 98 12/27/18 06:30 12/27/18 06:30 12/27/18 06:30 12/27/18 06:30 12/27/18 06:30 General appearance: average body habitus, cooperative, no acute distress - Head Head exam: Present: atraumatic, normal inspection, normocephalic - Eye Eye exam: Present: EOMI, normal appearance, PERRL Pupils: Present: normal accommodation - ENT ENT exam: Present: mucous membranes moist - Neck Neck exam: Present: normal inspection - Respiratory Respiratory exam: Present: CTAB. Absent: rales, respiratory distress, rhonchi, wheezes - Cardiovascular Cardiovascular exam: Present: RRR, +S1, +S2 - GI/Abdominal GI/Abdominal exam: Present: normal bowel sounds, soft. Absent: distended, tenderness - Extremities Exam Extremities exam: Present: pedal edema (Trace right lower extremity.). Absent: normal inspection (Right foot dressing clean, dry, and intact.) - Neurological Exam Neurological exam: Present: alert, oriented X3, no focal deficits - Psychiatric Psychiatric exam: Present: normal affect, normal mood - Skin Skin exam: Present: dry, intact, normal color, warm - VTE Documentation of Mechanical Device: Intermittent pneumatic compression device Consult Discharge Plan - Plan Referrals: NONE,PCP [Primary Care Provider] - - Attending Attestation I have personally performed a face to face evaluation on this patient. I have reviewed and agree with the care plan. History and Exam by me shows: Assessment and plan: 1.osteomyelitis of the right great toe causative organism not clear 2.diabetic foot ulcer 3.diabetic neuropathy 4.depression 5.Restless leg syndrome Recommendations: continue current antibiotics with vancomycin and zosyn await cultures duration of treatment depends on clinical picture monitor labs and for drug toxicity
--- NOTE | 2018-12-27 11:25 | Internal Med Progress Note ---
Hospitalist Progress Note - Encounter Date of Encounter: 12/27/18 Time of Encounter: 11:23 - Subjective Interval History: Patient seen and examined this morning at bedside. No acute overnight events. No overnight fevers. Pain control. When asked about IV drug use patient denied to me however patient did tell the nurse before that occasionally his son administered and few times to get herself. Also mentioned to nurse that she has history of depression and not been taking her medication since last 4 months. - Exam Vitals: Temp Pulse Resp BP Pulse Ox 98.4 F 69 16 159/95 98 12/27/18 10:36 12/27/18 10:36 12/27/18 10:36 12/27/18 10:36 12/27/18 10:36 Exam: General: In no acute distress. Respiratory exam: CTAB. no accessory muscle use, rales, rhonchi, wheezes Cardiovascular exam: RRR, +S1, +S2. no murmur, gallop, rubs. GI/Abdominal exam: Non-tender, Non-distended, normal bowel sounds, soft, no p eritoneal signs. Extremities exam: no pedal edema, pulses palpable in b/l lower extremities. no calf tenderness Neurological exam: CN II-XII intact, AO X3, no focal deficits. Skin exam: Rt food bandage in place.. Possible track mayo on Rt hand. - Summary of Assessment and Plan Summary of Assessment and Plan: Rt toe ulcer - MRI with osteomyelitis of distal phalanx of 1st digit - Plan for surgery today. - clindamycin and ciprofloxacin stopped. Infectious disease following . May need IV antibiotics depending on intraoperative findings. - Will change pain regimen to toradol given possible drug use behavioiur. Possible drug use - Patient given conflicting history. - obtain urine tox screening - possible son is providing drugs vs administering. Patient not forthcoming to me. platform worker consulted. - Will use non-opiates for pain control. Depression - Will obtain psychiatry consult. Reports being of antiderpressant before which she has not taken. Diabetes - c/w accuchecks and sliding scale Restless leg syndrome - c/w home ropinirole Diabetic neuropathy - c/w home gabapentin DVT prophylaxis - SCDs - Time Spent with Patient Total time spent is greater than 50% in coordination of care (as documented) at patient's floor/unit and/or counseling patient: Internal Medicine: Result - Labs CBC & Chem 7: 12/26/18 05:44 12/26/18 05:44 - Impressions Impressions Foot MRI 12/26/18 09:08 IMPRESSION: 1. Ulceration and sinus tract with subjacent partial osseous destruction and osteomyelitis of the tuft of the distal phalanx of the 1st digit. 2. Cellulitis of the right great toe and remainder of the foot. Mild myositis of the visualized intertarsal musculature. No discrete organized fluid collection identified. 3. Marrow edema within the 4th metatarsal diaphysis, likely stress related marrow edema. No displaced stress fracture identified at this point. Mild marrow edema to a lesser degree at the proximal 2nd and 3rd metatarsals likely degenerative. 4. Degenerative changes as detailed above. The findings were sent to the Radiology Results Communication Center at 7:58 am on 12/26/2018 to be communicated to a licensed caregiver. D/ / 12/26/2018 08:26:53 Gabriel Duval MD / [email or web address] Interpreting Provider: Gabriel Duval MD - VTE Documentation of Mechanical Device: Intermittent pneumatic compression device Consult Discharge Plan - Plan Referrals: NONE,PCP [Primary Care Provider] -
[2018-12-27] MEDS ORDERED: Ketorolac 30 MG/ML VIAL IVP PRN (11:31)
[2018-12-27 13:54] LABS: Amphetamine Screen,Urine Negative ng/mL (Cutoff=1000); Barbiturate Screen,Urine Negative ng/mL (Cutoff=200); Benzodiazepines Screen,Urine Negative ng/mL (Cutoff=200); Cannabinoid Screen,Urine Positive ng/mL (Cutoff = 50); Cocaine Screen,Urine Negative ng/mL (Cutoff= 300); Opiate Screen,Urine Negative ng/mL (Cutoff=300); Phencyclidine Screen,Urine Negative ng/mL (Cutoff=25)
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
[2018-12-27] MEDS ORDERED: CeFAZolin Syr 2,000MG/20 ML 2,000 MG/20 ML SYRINGE IVPB ONE (16:17)
[2018-12-27] MEDS ORDERED: Lidocaine 1% 20 ML MDV ONE ×2 (16:18→17:25)
[2018-12-27] MEDS ORDERED: Propofol 500 MG/50 ML INFUS..BTL ONE (16:19)
[2018-12-27] MEDS ORDERED: Lidocaine -MPF 2% 2 ML VIAL ONE (16:19)
[2018-12-27] MEDS ORDERED: *HR* Propofol 200 MG/20 ML VIAL IVP ONE (16:19)
--- NOTE | 2018-12-27 17:14 | Orthopedic Operative Note ---
Date of procedure: 12/27/18 Pre-op diagnosis: Right 1st toe ulcer, osteomyelitis distal phalanx Post-op diagnosis: same Procedure: 12/27/18 17:12 1. Right partial 1st toe amputation at interphalangeal joint Implants: None Complications: None Anesthesia: MAC, local Local Anesthetics: 1% Lidocaine HCL SubQ (cc), Other (0.5% ropivacaine) Surgeon: Beltran Bernal Was there an instructional support assistant present: No Estimated blood loss (cc): 1 Tourniquet Time (Minutes): 18 Specimen: Right hallux to pathology, right distal phalanx to micro Disposition: floor Procedure in Detail: 12/27/18 17:14 INDICATIONS AND CONSENT Jeane Malloy is a 63-year-old female who initially presented with a chronic right first toe wound and concern for infection. She had elevated ESR and CRP as well as MRI with evidence of osteomyelitis at the first toe distal phalanx coming from a sinus tract at the distal toe ulcer. We discussed treatment options including bone culture with IV antibiotics versus partial hallux amputation to remove the distal phalanx. She elected to proceed with the partial digit amputation as she believes that this will prevent her from needing long-term antibiotics and preventing any further infection by removing the infected bone. We discussed the above procedures in detail. This included a discussion on the indications, contraindications, and possible complications including but not limited to: infection, non-healing wound, pain, swelling, bleeding, blood clots, heart complications, nerve injury, tendon vascular injury, loss of limb, loss of life, chcf antibiotics, and need for further surgery. We also reviewed the expected post operative course, including a discussion on the partial-weightbearing status after this procedure. She related understanding of our discussion regarding this surgery. All questions were answered to her satisfaction, and a proper written informed consent was obtained, signed, and placed in the chart. No guarantees were given, stated or implied, as to the outcome of this procedure. PROCEDURE IN DETAIL The patient was seen in the pre-operative holding area by Anesthesia, where she was consented for MAC with local block. The patient was then brought back to the operative suite and placed on the operating room table in the supine position. A sign-in was performed. MAC was then initiated per Anesthesia protocol. A well- padded pneumatic right ankle tourniquet was then placed. Next, the right lower leg was scrubbed, prepped, and draped in the usual aseptic manner. A Berger Time-Out was performed, and all parties in the room agreed. Next, an Esmarch was used to exsanguinate the right foot. The pneumatic thigh tourniquet was inflated to 250 mmHg. a total of 10 mL of 1% lidocaine plain and 10 mL of 0.5% ropivacaine plain were injected to the right first ray and a Mcdaniel block distribution. A 15 blade was then used to create a fishmouth incision to excise the distal right hallux wound. The incision was carried deep to the level of the distal phalanx which appeared to be nonviable with necrosis. It was decided to excise the distal phalanx. A bone culture was sent from the distal phalanx for aerobe, anaerobe, acid fast and fungal. The distal right first toe was sent to pathology. The wound was then irrigated with 3 L of normal saline using cystoscopy tubing. The proximal phalanx of the right hallux appeared viable and healthy. Next, deep and subcutaneous tissues were re-approximated using 2-0 Vicryl and the skin was re-approximated under minimal tension using 3-0 Nylon. A dry, sterile dressing was then applied, which consisted of: Xeroform, 4x4's, Kerlix fluffs, ABDs, and Kerlix roll. The right ankle tourniquet was then deflated, and a proper hyperemic response was noted to the digits on the right foot and the distal hallux amputation stump. Capillary refill time of the toes on the right foot was also noted to be brisk at this time. A sign-out was performed. The patient tolerated anesthesia and the procedure well, and was transferred to PAC-U with vital signs stable and vascular status intact to the right lower extremity. Needle and sponge counts were correct X 2 at the end of the case. Dr. Beltran Bernal was present, scrubbed, and participated in all vital aspects of the procedure. After a brief stay in PAC-U, the patient will be admitted back to the floor for continued monitoring. Patient will likely need course of antibiotics based on culture sensitivities. 12/28/18 05:24
[2018-12-27] MEDS ORDERED: ROPIVACAINE/PF/NS SYRINGE INTRAART ONE (17:25)
[2018-12-27] MEDS ORDERED: Naloxone 0.4 MG/ML INJ IVP PRN (17:41)
[2018-12-27] MEDS: Ketorolac 30 MG/ML VIAL IVP PRN (18:12)
[2018-12-27] MEDS ORDERED: Acetaminophen 325 MG TABLET PO ONE (22:35)
[2018-12-28] MEDS: Ketorolac 30 MG/ML VIAL IVP PRN ×2 (06:24→15:36)
[2018-12-28] MEDS ORDERED: Piperacillin/Tazobactam 3.375 GM in 0.9 % Sodium Chloride Mini Bag 100 ML IVPB SCH (08:14)
[2018-12-28] MEDS ORDERED: Ondansetron 4 MG/2 ML VIAL IVP PRN (09:58)
--- NOTE | 2018-12-28 10:43 | Podiatry Progress Note ---
Date of Encounter: 12/28/18 Time of Encounter: 09:50 - Assessment and Plan (1) Diabetic infection of right foot Current Visit: No Status: Acute Assessment: -Dressing dry and intact -No swelling above or below dressing -2/4 PT pulse RLE -Cap refill immediate to all digits -ESR 52, CRP 17 -MRI showed evidence of: 1. Ulceration and sinus tract with subjacent partial osseous destruction and osteomyelitis of the tuft of the distal phalanx of the 1st digit. 2. Cellulitis of the right great toe and remainder of the foot. Mild myositis of the visualized intertarsal musculature. No discrete organized fluid collection identified. 3. Marrow edema within the 4th metatarsal diaphysis, likely stress related marrow edema. No displaced stress fracture identified at this point. Mild marrow edema to a lesser degree at the proximal 2nd and 3rd metatarsals likely degenerative. 4. Degenerative changes as detailed above. -Intra-op cultures pending Plan: -Do not change dressing unless it becomes saturated, Podiatry to change on Wednesday -Weight bearing heel touch in surgical shoe -May only need short term IV antibiotics and then switch to PO pending intra-op cultures, I&D to make final recommendation -Will continue to monitor Subjective Interval history: Post op day #1, Right partial 1st toe amputation at interphalangeal joint by Dr. Bernal on 12/27/2018 Patient sleeping aroused easily with verbal stimuli, oriented x 3. No acute distress noted. Patient denies any chest pain or shortness of breath. She does report pain right lower extremity that has been there for weeks. She denies any fever, chills, vomiting, or diarrhea. Patient does report some epigastric discomfort and nausea that started this am after eating. Objective - Vital Signs Vital Signs: Vital Signs Temp Pulse Resp BP Pulse Ox 12/28/18 07:19 98.0 F 67 16 158/91 99 12/28/18 03:24 97.8 F 77 17 162/95 96 12/27/18 22:46 98.2 F 68 17 137/82 96 12/27/18 20:50 98 12/27/18 19:27 98.0 F 78 17 144/88 98 12/27/18 17:42 97.7 F 65 16 136/88 99 12/27/18 15:48 98.3 F 65 14 144/88 98 12/27/18 15:26 98.1 F 74 20 151/91 97 Intake and Output 12/27/18 12/28/18 12/28/18 23:59 07:59 15:59 Intake Total 20 / 20 240 / 240 Output Total 151 / 151 650 / 650 Balance -131 / -131 -650 / -650 240 / 240 Intake: IV Fluids 20 / 20 Ancef Syringe 2,000 MG/20 ML 2, 20 / 20 000 mg In 20 ml @ 200 mls/hr IVPB PREOP ONE Rx#:[id number] Oral 240 / 240 Output: Urine 150 / 150 650 / 650 Estimated Blood Loss Other: Meal Breakfast Percent of Meal Consumed 100% Weight 84.5 kg Blood Glucose* 155 139 Patient Weight 12/28/18 23:59 Weight 84.5 kg - Exam Exam: Constitutional: Patient sleeping, aroused easily with verbal stimuli, oriented x 3, no acute distress noted Vascular: 2/4 PT pulse RLE. Cap refill immediate to all digits. Skin warm from toes to tibia. Neurological: Sensation diminished bilateral lower extremities, proprioception abnormal dorsiflexion/plantar flexion Dermatological: Dressing dry and intact without any evidence of strike through noted, no swelling above or below dressing Musculoskeletal: 4/5 muscle strength, normal tone, movement of exposed toes noted RLE - Lab Result Diagrams: 12/26/18 05:44 12/26/18 05:44 Labs: Abnormal lab results ESR 52 mm/hr (0-15) H 12/25/18 01:44 Creatinine 0.59 mg/dL (0.60-1.20) L 12/26/18 05:44 Glucose 109 mg/dL (70-105) H 12/26/18 05:44 POC Glucose 155 mg/dL (70-99) H 12/27/18 19:51 C-Reactive Protein 17 mg/L (Less than 10) H 12/25/18 01:44 U Marijuana (THC) Screen Positive ng/mL (Cutoff = 50) H 12/27/18 13:20 Microbiology, Last 48 Hours 12/27/18 17:21 Surgical Biopsy Culture - Preliminary Right Foot - VTE Documentation of Mechanical Device: Intermittent pneumatic compression device Consult Discharge Plan - Plan Referrals: NONE,PCP [Primary Care Provider] -
--- NOTE | 2018-12-28 11:10 | Infectious Disease Progress No ---
Date of Encounter: 12/28/18 Time of Encounter: 10:00 - Assessment and Plan (1) Osteomyelitis Current Visit: Yes Status: Acute Location: Right great toe. Causative organism: Unclear. Previous wound cultures in November were positive for Enterobacter cloacae and GBS. Likely secondary to chronic nonhealing diabetic foot ulcer. X-ray of the right foot showed findings consistent with osteoarthritis of the first digit. MRI of the right foot showed findings consistent with osteo-myelitis of the distal phalanx of the first digit and cellulitis. ESR elevated at 52 with a CRP of 17. Podiatry consult. Status post partial amputation of the right great toe 12/27/[address] Bernal. Operative note reviewed. Intra-op cultures pending. Not currently on any antibiotics. Recommendations: Await blood cultures. Await intra-op cultures. Check CBC, BMP, ESR, CRP, amylase, lipase, and LFTs. Wound care and activity per the Podiatry team. Start Vancomycin IV. Pharmacy to dose. Goal trough ~15. Start Zosyn 3.375 g IV every 8 hours. Duration of treatment depends on the clinical picture, but likely total 6 weeks. Monitor renal function for drug toxicity and is just antibiotics. transaction advisory services manager to assist with discharge planning. Avoid insertion of long-term IV access until final antibiotic regimen is determined. Qualifiers: Osteomyelitis type: unspecified type Osteomyelitis location: foot Laterality: right Qualified Code(s): M86.9 - Osteomyelitis, unspecified (2) Diabetic infection of right foot Current Visit: No Status: Acute Location: Right foot great toe. Causative organism: Unclear. Likely secondary to chronic non-healing ulcer. Podiatry consulted. (3) Diabetic neuropathy Current Visit: Yes Status: Acute Qualifiers: Diabetes mellitus type: type 2 Diabetes mellitus complication detail: diabetic polyneuropathy Qualified Code(s): E11.42 - Type 2 diabetes mellitus with diabetic polyneuropathy (4) Restless leg syndrome Current Visit: Yes Status: Acute (5) Diabetes Current Visit: Yes Status: Chronic Qualifiers: Diabetes mellitus type: type 2 Diabetes mellitus fci insulin use: without fci use Diabetes mellitus complication status: with skin complications Diabetes mellitus complication detail: with foot ulcer Qualified Code(s): E11.621 - Type 2 diabetes mellitus with foot ulcer; L97.509 - Non-pressure chronic ulcer of other part of unspecified foot with unspecified severity (6) Depression Current Visit: Yes Status: Acute The patient states she was on antidepressant medications prior to coming to [place]. She states she has not had her medications for about 4 months she came here. Psych consulted. Appreciate recommendations. Qualifiers: Depression Type: unspecified Qualified Code(s): F32.9 - Major depressive disorder, single episode, unspecified (7) Abdominal pain Current Visit: Yes Status: Acute Epigastric pain with associated nausea. Etiology unclear. History of cholecystectomy. Check labs. Pain management per the primary team. Qualifiers: Abdominal location: epigastric Qualified Code(s): R10.13 - Epigastric pain - Subjective Interval history: Patient seen and examined. Status post partial amputation of the right great toe 12/27/[address] Bernal. Patient continues to complain of pain in the right foot and right lower extremity. Reports shortness of breath that is worse this morning with some epigastric pain and nausea. Reports a cough that is chronic. Denies urinary complaints. States she feels constipated and has not had a bowel movement in 4 days. Denies any oral thrush or new skin lesions. Infect Dis PN-Objective Data - Labs CBC & Chem 7: 12/29/18 06:53 12/29/18 06:53 Labs: Laboratory Results - last 24 hr 12/27/18 12/27/18 12/27/18 12:12 13:20 17:49 POC Glucose 99 84 Urine Opiates Screen Negative Ur Barbiturates Screen Negative Ur Phencyclidine Scrn Negative Ur Amphetamines Screen Negative U Benzodiazepines Scrn Negative Urine Cocaine Screen Negative U Marijuana (THC) Screen Positive H Ur Drug Screen Interp See Below 12/27/18 19:51 POC Glucose 155 H Urine Opiates Screen Ur Barbiturates Screen Ur Phencyclidine Scrn Ur Amphetamines Screen U Benzodiazepines Scrn Urine Cocaine Screen U Marijuana (THC) Screen Ur Drug Screen Interp Cultures: Cultures 12/27/18 17:21 Surgical Biopsy Culture - Preliminary Right Foot Exam - Constitutional Vitals: Temp Pulse Resp BP Pulse Ox 98.0 F 67 16 158/91 99 12/28/18 07:19 12/28/18 07:19 12/28/18 07:19 12/28/18 07:19 12/28/18 07:19 General appearance: cooperative, no acute distress, obese - Head Head exam: Present: atraumatic, normal inspection, normocephalic - Eye Eye exam: Present: EOMI, normal appearance, PERRL Pupils: Present: normal accommodation - ENT ENT exam: Present: mucous membranes moist - Neck Neck exam: Present: normal inspection - Respiratory Respiratory exam: Present: CTAB. Absent: rales, respiratory distress, rhonchi, wheezes - Cardiovascular Cardiovascular exam: Present: RRR, +S1, +S2 - GI/Abdominal GI/Abdominal exam: Present: distended (obese), normal bowel sounds, soft, tenderness (Epigastric and LUQ) - Extremities Exam Extremities exam: Present: pedal edema (Trace RLE), tenderness (right foot). Absent: joint swelling, normal inspection (Right foot dressing C/D/I) - Neurological Exam Neurological exam: Present: alert, oriented X3, no focal deficits - Psychiatric Psychiatric exam: Present: normal affect, normal mood - Skin Skin exam: Present: dry, intact, normal color, warm - VTE Documentation of Mechanical Device: Intermittent pneumatic compression device Consult Discharge Plan - Plan Referrals: Elva Isabel, [employer] [Advanced Practice Nurse] - 01/17/19 1:45 pm NONE,PCP [Primary Care Provider] - - Attending Attestation I have personally performed a face to face evaluation on this patient. I have reviewed and agree with the care plan. History and Exam by me shows: Assessment and plan: 1.osteomyelitis of the right great toe causative organism not clear 2.diabetic foot ulcer 3.diabetic neuropathy 4.depression 5.Restless leg syndrome Recommendations: Status post partial amputation of the right great toe 12/27/[address] Bernal. Operative note reviewed. Intra-op cultures pending. continue current antibiotics with vancomycin and zosyn await cultures duration of treatment depends on clinical picture monitor labs and for drug toxicity
[2018-12-28] MEDS: rOPINIRole 3 MG, rOPINIRole 2 MG PO SCH ×2 (11:29→21:27)
[2018-12-28] MEDS: Gabapentin 400 MG CAPSULE PO SCH ×3 (11:29→21:27)
[2018-12-28] MEDS ORDERED: Ketorolac 15 MG/ML VIAL IM PRN (11:31)
[2018-12-28] MEDS: *HR* HYDROcodone/Acet 7.5/325 mg TABLET PO PRN ×2 (12:20→18:51)
--- NOTE | 2018-12-28 12:48 | Internal Med Progress Note ---
Hospitalist Progress Note - Encounter Date of Encounter: 12/28/18 Time of Encounter: 11:00 - Subjective Interval History: Underwent right partial first toe amputation uneventfully yesterday. Pain was poorly controlled on IV Toradol only. Otherwise, denies any fever/chills, nausea/vomiting, chest pain, or diaphoresis. - Exam Vitals: Temp Pulse Resp BP Pulse Ox 99.1 F 71 16 164/101 99 12/28/18 11:16 12/28/18 11:16 12/28/18 07:19 12/28/18 11:16 12/28/18 11:16 Exam: General: In no acute distress. Respiratory exam: CTAB. Cardiovascular exam: RRR, +S1, +S2. no murmur, gallop, rubs. GI/Abdominal exam: Non-tender, Non-distended, normal bowel sounds, soft, no peritoneal signs. Extremities exam: R foot dressing c/d/i Neurological exam: no focal deficits. - Assessment and Plan (1) Osteomyelitis Current Visit: Yes Status: Acute Assessment and Plan: MRI right foot showed findings consistent with osteomyelitis of the distal phalanx of the right first toe with surrounding cellulitis ESR/CRP also elevated underwent partial R 1st toe amputation on 12/27, POD#1 dressing per podiatry, appreciate input start vanc/zosyn per ID, appreciate input pending intraop path and culture (2) Diabetes Current Visit: Yes Status: Chronic Assessment and Plan: hold off on Trulicity Well controlled on sliding scale, continue (3) Major depressive disorder, recurrent episode, moderate Current Visit: Yes Status: Acute Assessment and Plan: Appreciate psychiatry review, will start escitalopram 10 mg QD per their rec outpatient psychiatric services and counseling (4) DVT prophylaxis Current Visit: Yes Status: Acute Assessment and Plan: EPCD - Time Spent with Patient Total time spent is greater than 50% in coordination of care (as documented) at patient's floor/unit and/or counseling patient: 25 - 35 minutes Plan of Care Discussed with: patient Internal Medicine: Result - Labs CBC & Chem 7: 12/26/18 05:44 12/26/18 05:44 - VTE Documentation of Mechanical Device: Intermittent pneumatic compression device Consult Discharge Plan - Plan Referrals: NONE,PCP [Primary Care Provider] - (1) Osteomyelitis Qualifiers: Osteomyelitis type: unspecified type Osteomyelitis location: foot Laterality: right Qualified Code(s): M86.9 - Osteomyelitis, unspecified (2) Diabetes Qualifiers: Diabetes mellitus type: type 2 Diabetes mellitus terminal press operator insulin use: without penitentiary use Diabetes mellitus complication status: with skin c omplications Diabetes mellitus complication detail: with foot ulcer Qualified Code(s): E11.621 - Type 2 diabetes mellitus with foot ulcer; L97.509 - Non- pressure chronic ulcer of other part of unspecified foot with unspecified severity
[2018-12-28] MEDS ORDERED: Dextrose Gel 15 GM/37.5 ML TUBE PO PRN ×2 (12:50)
[2018-12-28] MEDS ORDERED: *HR* Dextrose 50 % in Water (Syg) 50 ML SYRINGE IVP PRN (12:50)
[2018-12-28] MEDS ORDERED: D5% in Water 1,000 ML IVC PRN (12:50)
[2018-12-28] MEDS: Insulin LISPRO 300 UNITS/3 ML VIAL SQ SCH (16:43)
[2018-12-28] MEDS: Piperacillin/Tazobactam 3.375 GM in 0.9 % Sodium Chloride Mini Bag 100 ML IVPB SCH (20:01)
[2018-12-28 20:10] LABS: Alanine Aminotransferase 32 Units/L (7-52); Albumin 3.3 g/dL (3.5-5.7); Albumin/Globulin Ratio 0.9 (1.1-2.2); Aspartate Amino Transferase 41 Units/L (13-39); BUN/Creatinine Ratio 18 (6-26); Bilirubin,Indirect 0.3 mg/dL (0.0-1.2); Bilirubin,Total 0.3 mg/dL (0.3-1.0); Blood Urea Nitrogen 12 mg/dL (8-23); C-Reactive Protein < 5 mg/L (Less than 10); Calcium 9.1 mg/dL (8.6-10.3); Carbon Dioxide 27 mEq/L (23-29); Chloride 105 mEq/L (98-107); Globulin 3.5 g/dL (2.4-3.5); Glucose 150 mg/dL (70-105); Osmolality,Calculated 289 (280-300); Potassium 3.9 mEq/L (3.5-5.1); Sodium 138 mEq/L (136-145); Total Protein 6.8 g/dL (6.4-8.9); eGFR For Non-African Americans > 60 (> 60)
[2018-12-28 20:59] LABS: Alkaline Phosphatase 121 Units/L (34-104)
[2018-12-29] MEDS: *HR* HYDROcodone/Acet 7.5/325 mg TABLET PO PRN ×3 (04:45→19:25)
[2018-12-29] MEDS: Piperacillin/Tazobactam 3.375 GM in 0.9 % Sodium Chloride Mini Bag 100 ML IVPB SCH ×3 (04:46→20:40)
[2018-12-29 07:35] LABS: Basophils % 0.7 %; Eosinophils # 0.4 K/mcL (0.0-0.6); Eosinophils % 6.4 %; Hematocrit 37.9 % (35.3-44.9); Hemoglobin 12.6 g/dL (11.5-15.4); Immature Granulocytes % 0.5 % (0-4); Lymphocytes # 2.1 K/mcL (0.6-4.6); Lymphocytes % 35.8 %; Mean Corpuscular HGB Conc 33.2 g/dL (31.6-35.5); Mean Corpuscular Hemoglobin 29.6 pg (28.0-33.3); Mean Platelet Volume 9.3 fL (9.4-12.4); Monocytes # 0.4 K/mcL (0.0-1.3); Monocytes % 6.6 %; Platelet Count 181 K/mcL (140-400); Red Blood Count 4.26 M/mcL (3.82-4.97); Red Cell Distribution Width 13.3 % (11.5-14.5)
[2018-12-29 07:52] LABS: BUN/Creatinine Ratio 18 (6-26); Blood Urea Nitrogen 10 mg/dL (8-23); Calcium 9.4 mg/dL (8.6-10.3); Carbon Dioxide 29 mEq/L (23-29); Chloride 104 mEq/L (98-107); Glucose 108 mg/dL (70-105); Osmolality,Calculated 284 (280-300); Potassium 3.9 mEq/L (3.5-5.1); Sodium 137 mEq/L (136-145); eGFR For Non-African Americans > 60 (> 60)
[2018-12-29] MEDS: Ketorolac 30 MG/ML VIAL IVP PRN (08:45)
[2018-12-29] MEDS: Insulin LISPRO 300 UNITS/3 ML VIAL SQ SCH ×3 (08:46→17:28)
[2018-12-29] MEDS: Gabapentin 400 MG CAPSULE PO SCH ×3 (11:14→20:39)
[2018-12-29] MEDS: rOPINIRole 3 MG, rOPINIRole 2 MG PO SCH ×2 (11:15→20:39)
--- NOTE | 2018-12-29 12:01 | Internal Med Progress Note ---
Hospitalist Progress Note - Encounter Date of Encounter: 12/29/18 Time of Encounter: 10:45 - Subjective Interval History: No acute events overnight. No fever/chills. Right foot pain is better controlled on different set of analgesics. - Exam Vitals: Temp Pulse Resp BP Pulse Ox 98.0 F 65 16 162/91 95 12/29/18 11:06 12/29/18 11:06 12/29/18 11:06 12/29/18 11:06 12/29/18 11:06 Exam: General: In no acute distress. Respiratory exam: CTAB. Cardiovascular exam: RRR, +S1, +S2. no murmur, gallop, rubs. GI/Abdominal exam: Non-tender, Non-distended, normal bowel sounds, soft, no peritoneal signs. Extremities exam: R foot dressing c/d/i Neurological exam: no focal deficits. - Assessment and Plan (1) Osteomyelitis Current Visit: Yes Status: Acute Assessment and Plan: MRI right foot showed findings consistent with osteomyelitis of the distal phalanx of the right first toe with surrounding cellulitis ESR/CRP also elevated underwent partial R 1st toe amputation on 12/27, POD#2 dressing per podiatry, appreciate input continue vanc/zosyn till intraop culture is resulted. Follow with ID pending intraop path and culture (2) Diabetes Current Visit: Yes Status: Chronic Assessment and Plan: hold off on Trulicity Well controlled on sliding scale, continue (3) Major depressive disorder, recurrent episode, moderate Current Visit: Yes Status: Acute Assessment and Plan: Appreciate psychiatry review, Escitalopram 10 mg QD started yesterday per their rec outpatient psychiatric services and counseling (4) DVT prophylaxis Current Visit: Yes Status: Acute Assessment and Plan: EPCD - Time Spent with Patient Total time spent is greater than 50% in coordination of care (as documented) at patient's floor/unit and/or counseling patient: 25 - 35 minutes Plan of Care Discussed with: patient Internal Medicine: Result - Labs CBC & Chem 7: 12/29/18 06:53 12/29/18 06:53 Labs: Short CBC 12/29/18 Range/Units 06:53 WBC 5.9 (4.3-11.1) K/mcL Hgb 12.6 (11.5-15.4) g/dL Hct 37.9 (35.3-44.9) % Plt Count 181 (140-400) K/mcL Neutrophils # 3.0 (1.6-8.9) K/mcL BMP 12/28/18 12/29/18 19:24 06:53 Sodium 138 137 Potassium 3.9 3.9 Chloride 105 104 Carbon Dioxide 27 29 BUN 12 10 Creatinine 0.67 0.56 L Glucose 150 H 108 H Calcium 9.1 9.4 Liver Function 12/28/18 Range/Units 19:24 Total Bilirubin 0.3 (0.3-1.0) mg/dL Direct Bilirubin 0.0 (0.0-0.2) mg/dL AST 41 H (13-39) Units/L ALT 32 (7-52) Units/L Alkaline Phosphatase 121 H (34-104) Units/L Albumin 3.3 L (3.5-5.7) g/dL - VTE Documentation of Mechanical Device: Intermittent pneumatic compression device Consult Discharge Plan - Plan Referrals: NONE,PCP [Primary Care Provider] - (1) Osteomyelitis Qualifiers: Osteomyelitis type: unspecified type Osteomyelitis location: foot Laterality: right Qualified Code(s): M86.9 - Osteomyelitis, unspecified (2) Diabetes Qualifiers: Diabetes mellitus type: type 2 Diabetes mellitus detention insulin use: without detention use Diabetes mellitus complication status: with skin complications Diabetes mellitus complication detail: with foot ulcer Qualified Code(s): E11.621 - Type 2 diabetes mellitus with foot ulcer; L97.509 - Non- pressure chronic ulcer of other part of unspecified foot with unspecified severity
--- NOTE | 2018-12-29 12:24 | Podiatry Progress Note ---
Date of Encounter: 12/29/18 Time of Encounter: 11:30 - Assessment and Plan (1) Diabetic infection of right foot Current Visit: No Status: Acute Assessment: -Dressing dry and intact -No swelling above or below dressing -2/4 PT pulse RLE -Cap refill immediate to all digits -ESR 52, CRP 17 -WBC 5.9 -MRI showed evidence of: 1. Ulceration and sinus tract with subjacent partial osseous destruction and osteomyelitis of the tuft of the distal phalanx of the 1st digit. 2. Cellulitis of the right great toe and remainder of the foot. Mild myositis of the visualized intertarsal musculature. No discrete organized fluid collection identified. 3. Marrow edema within the 4th metatarsal diaphysis, likely stress related marrow edema. No displaced stress fracture identified at this point. Mild marrow edema to a lesser degree at the proximal 2nd and 3rd metatarsals likely degenerative. 4. Degenerative changes as detailed above. -Intra-op cultures pending Plan: -Do not change dressing, call if it becomes saturated, Podiatry to change on Wednesday -Weight bearing heel touch in surgical shoe -ID following, per Dr. Bernal all involved bone was removed with surgical debridement, short term IV antibiotics then switch to PO -Follow up with Dr. Bernal one week after discharge in Podiatry office -Will continue to monitor Subjective Interval history: Post op day #2, Right partial 1st toe amputation at interphalangeal joint by Dr. Bernal on 12/27/2018 Patient alert and oriented x 3. No acute distress noted. Patient denies any chest pain or shortness of breath. She does report pain right lower extremity that has been there for weeks. She denies any fever, chills, nausea, vomiting, or diarrhea. Objective - Vital Signs Vital Signs: Vital Signs Temp Pulse Resp BP Pulse Ox 12/29/18 11:06 98.0 F 65 16 162/91 95 12/29/18 09:27 98.2 F 67 16 163/95 96 12/29/18 08:21 98.2 F 62 16 96 12/29/18 07:13 98.0 F 66 14 166/93 97 12/29/18 04:42 156/97 12/29/18 03:18 97.9 F 60 16 185/99 95 12/28/18 22:40 97.8 F 63 16 155/87 96 12/28/18 20:48 98.4 F 65 16 149/80 94 12/28/18 16:14 98.7 F 71 15 157/89 96 12/28/18 14:31 63 161/89 Intake and Output 12/28/18 12/29/18 12/29/18 23:59 07:59 15:59 Intake Total 900 / 900 350 / 350 240 / 240 Output Total 650 / 650 800 / 800 1100 / 1100 Balance 250 / 250 -450 / -450 -860 / -860 Intake: IV Fluids 600 / 600 350 / 350 Zosyn 3.375 GM In 0.9 % Sodium 100 / 100 100 / 100 Chloride (Mini-Bag +) 100 ML @ 25 mls/hr IVPB Q8H [facility] Rx#: [id number] Vancocin 1,250 MG In 0.9 % 250 / 250 Sodium Chloride 250 ML @ 166.67 mls/hr IVPB Q12H [facility] Rx#: [id number] Vancocin 1,750 MG In 0.9 % 500 / 500 Sodium Chloride 500 ML @ 333.3 mls/hr IVPB ONCE ONE Rx#: [id number] Oral 300 / 300 240 / 240 Output: Urine 650 / 650 800 / 800 1100 / 1100 Other: Meal Breakfast Percent of Meal Consumed 90% # Voids 2 Weight 86 kg 86.2 kg Blood Glucose* 162 103 109 Patient Weight 12/29/18 23:59 Weight 86.2 kg - Exam Exam: Constitutional: Patient alert and oriented x 3, no acute distress noted Vascular: 2/4 PT pulse RLE. Cap refill immediate to all digits. Skin warm from toes to tibia. Neurological: Sensation diminished bilateral lower extremities, proprioception abnormal dorsiflexion/plantar flexion Dermatological: Dressing dry and intact without any evidence of strike through noted, no swelling above or below dressing Musculoskeletal: 4/5 muscle strength, normal tone, movement of exposed toes noted RLE - Lab Result Diagrams: 12/29/18 06:53 12/29/18 06:53 Labs: Abnormal lab results MPV 9.3 fL (9.4-12.4) L 12/29/18 06:53 ESR 70 mm/hr (0-15) H 12/28/18 11:58 Creatinine 0.56 mg/dL (0.60-1.20) L 12/29/18 06:53 Glucose 108 mg/dL (70-105) H 12/29/18 06:53 POC Glucose 162 mg/dL (70-99) H 12/28/18 21:01 AST 41 Units/L (13-39) H 12/28/18 19:24 Alkaline Phosphatase 121 Units/L (34-104) H 12/28/18 19:24 Albumin 3.3 g/dL (3.5-5.7) L 12/28/18 19:24 Albumin/Globulin Ratio 0.9 (1.1-2.2) L 12/28/18 19:24 U Marijuana (THC) Screen Positive ng/mL (Cutoff = 50) H 12/27/18 13:20 Microbiology, Last 48 Hours 12/27/18 17:21 Surgical Biopsy Culture - Preliminary Right Foot - VTE Documentation of Mechanical Device: Intermittent pneumatic compression device Consult Discharge Plan - Plan Referrals: NONE,PCP [Primary Care Provider] -
--- NOTE | 2018-12-29 14:30 | Infectious Disease Progress No ---
Date of Encounter: 12/29/18 Time of Encounter: 10:20 - Assessment and Plan (1) Osteomyelitis Current Visit: Yes Status: Acute Location: Right great toe. Causative organism: Unclear. Previous wound cultures in November were positive for Enterobacter cloacae and GBS. Likely secondary to chronic nonhealing diabetic foot ulcer. X-ray of the right foot showed findings consistent with osteoarthritis of the first digit. MRI of the right foot showed findings consistent with osteo-myelitis of the distal phalanx of the first digit and cellulitis. ESR elevated at 52 with a CRP of 17. Podiatry consult. Status post partial amputation of the right great toe 12/27/[address] Bernal. Operative note reviewed. Intra-op cultures pending. Not currently on any antibiotics. Recommendations: Await blood cultures. Await intra-op cultures. Check amylase and lipase. Wound care and activity per the Podiatry team. Continue Vancomycin IV. Pharmacy to dose. Goal trough ~15. Continue Zosyn 3.375 g IV every 8 hours. Duration of treatment depends on the clinical picture, but likely total 6 weeks. Monitor renal function for drug toxicity and is just antibiotics. municipal services manager to assist with discharge planning. Avoid insertion of long-term IV access until final antibiotic regimen is determined. Qualifiers: Osteomyelitis type: unspecified type Osteomyelitis location: foot Laterality: right Qualified Code(s): M86.9 - Osteomyelitis, unspecified (2) Diabetic infection of right foot Current Visit: No Status: Acute Location: Right foot great toe. Causative organism: Unclear. Likely secondary to chronic non-healing ulcer. Podiatry consulted. Currently on Vanc and Zosyn. (3) Diabetic neuropathy Current Visit: Yes Status: Acute Qualifiers: Diabetes mellitus type: type 2 Diabetes mellitus complication detail: diabetic polyneuropathy Qualified Code(s): E11.42 - Type 2 diabetes mellitus with diabetic polyneuropathy (4) Restless leg syndrome Current Visit: Yes Status: Acute (5) Diabetes Current Visit: Yes Status: Chronic Qualifiers: Diabetes mellitus type: type 2 Diabetes mellitus intermediate accountant insulin use: without intermediate accountant use Diabetes mellitus complication status: with skin complications Diabetes mellitus complication detail: with foot ulcer Qualified Code(s): E11.621 - Type 2 diabetes mellitus with foot ulcer; L97.509 - Non-pressure chronic ulcer of other part of unspecified foot with unspecified severity (6) Depression Current Visit: Yes Status: Acute The patient states she was on antidepressant medications prior to coming to [place]. She states she has not had her medications for about 4 months she came here. Psych consulted. Appreciate recommendations. Qualifiers: Depression Type: unspecified Qualified Code(s): F32.9 - Major depressive disorder, single episode, unspecified (7) Abdominal pain Current Visit: Yes Status: Acute Epigastric pain with associated nausea. Etiology unclear. History of cholecystectomy. Check amylase and lipase. Pain management per the primary team. Qualifiers: Abdominal location: epigastric Qualified Code(s): R10.13 - Epigastric pain - Subjective Interval history: Patient seen and examined. No acute events noted overnight. Status post partial amputation of the right great toe 12/27/[address] Bernal. Patient continues to complain of pain in the right foot and right lower extremity. Reports shortness of breath and cough that are at baseline. Reports epigastric discomfort improved, but still there. Reprorts some nausea, but no vomiting, and states she was able to eat breakfast this morning. Denies urinary complaints. States she feels constipated and has only had a small amount of hard stool. Denies any oral thrush or new skin lesions. Infect Dis PN-Objective Data - Labs CBC & Chem 7: 12/29/18 06:53 12/29/18 06:53 Labs: Laboratory Results - last 24 hr 12/28/18 12/28/18 12/28/18 07:21 11:40 11:58 WBC RBC Hgb Hct MCV MCH MCHC RDW Plt Count MPV Immature Gran % Seg Neutrophils % Lymphocytes % Monocytes % Eosinophils % Basophils % Neutrophils # Lymphocytes # Monocytes # Eosinophils # Basophils # Sodium Potassium Chloride Carbon Dioxide BUN Creatinine Est GFR ( Amer) Est GFR (Non-Af Amer) BUN/Creatinine Ratio Glucose POC Glucose 139 H 121 H Calculated Osmolality Calcium Total Bilirubin Direct Bilirubin Indirect Bilirubin AST ALT Alkaline Phosphatase C-Reactive Protein Serum Total Protein Albumin Globulin Albumin/Globulin Ratio Specimen Rejected Miscellaneous 12/28/18 12/28/18 12/28/18 16:15 19:24 21:01 WBC RBC Hgb Hct MCV MCH MCHC RDW Plt Count MPV Immature Gran % Seg Neutrophils % Lymphocytes % Monocytes % Eosinophils % Basophils % Neutrophils # Lymphocytes # Monocytes # Eosinophils # Basophils # Sodium 138 Potassium 3.9 Chloride 105 Carbon Dioxide 27 BUN 12 Creatinine 0.67 Est GFR ( Amer) > 60 Est GFR (Non-Af Amer) > 60 BUN/Creatinine Ratio 18 Glucose 150 H POC Glucose 139 H 162 H Calculated Osmolality 289 Calcium 9.1 Total Bilirubin 0.3 Direct Bilirubin 0.0 Indirect Bilirubin 0.3 AST 41 H ALT 32 Alkaline Phosphatase 121 H C-Reactive Protein < 5 Serum Total Protein 6.8 Albumin 3.3 L Globulin 3.5 Albumin/Globulin Ratio 0.9 L Specimen Rejected 12/29/18 12/29/18 06:53 06:53 WBC 5.9 RBC 4.26 Hgb 12.6 Hct 37.9 MCV 89.0 MCH 29.6 MCHC 33.2 RDW 13.3 Plt Count 181 MPV 9.3 L Immature Gran % 0.5 Seg Neutrophils % 50.0 Lymphocytes % 35.8 Monocytes % 6.6 Eosinophils % 6.4 Basophils % 0.7 Neutrophils # 3.0 Lymphocytes # 2.1 Monocytes # 0.4 Eosinophils # 0.4 Basophils # 0.0 Sodium 137 Potassium 3.9 Chloride 104 Carbon Dioxide 29 BUN 10 Creatinine 0.56 L Est GFR ( Amer) > 60 Est GFR (Non-Af Amer) > 60 BUN/Creatinine Ratio 18 Glucose 108 H POC Glucose Calculated Osmolality 284 Calcium 9.4 Total Bilirubin Direct Bilirubin Indirect Bilirubin AST ALT Alkaline Phosphatase C-Reactive Protein Serum Total Protein Albumin Globulin Albumin/Globulin Ratio Specimen Rejected Cultures: Cultures 12/27/18 17:21 Surgical Biopsy Culture - Preliminary Right Foot Exam - Constitutional Vitals: Temp Pulse Resp BP Pulse Ox 98.0 F 65 16 162/91 95 12/29/18 11:06 12/29/18 11:06 12/29/18 11:06 12/29/18 11:06 12/29/18 11:06 General appearance: average body habitus, cooperative, no acute distress - Head Head exam: Present: atraumatic, normal inspection, normocephalic - Eye Eye exam: Present: EOMI, normal appearance, PERRL - ENT ENT exam: Present: mucous membranes moist - Neck Neck exam: Present: normal inspection - Respiratory Respiratory exam: Present: CTAB. Absent: rales, respiratory distress, rhonchi, wheezes - Cardiovascular Cardiovascular exam: Present: RRR, +S1, +S2 - GI/Abdominal GI/Abdominal exam: Present: normal bowel sounds, soft, tenderness (Epigastric, RUQ). Absent: distended - Extremities Exam Extremities exam: Present: pedal edema (Trace RLE). Absent: normal inspection (Right foot dressing C/D/I) - Neurological Exam Neurological exam: Present: alert, oriented X3, no focal deficits - Psychiatric Psychiatric exam: Present: normal affect, normal mood - Skin Skin exam: Present: dry, intact, normal color, warm - VTE Documentation of Mechanical Device: Intermittent pneumatic compression device Consult Discharge Plan - Plan Referrals: Elva Isabel, [employer] [Advanced Practice Nurse] - 01/17/19 1:45 pm NONE,PCP [Primary Care Provider] - - Attending Attestation I have personally performed a face to face evaluation on this patient. I have reviewed and agree with the care plan. History and Exam by me shows: Assessment and plan: 1.osteomyelitis of the right great toe causative organism not clear 2.diabetic foot ulcer 3.diabetic neuropathy 4.depression 5.Restless leg syndrome Recommendations: Status post partial amputation of the right great toe 12/27/[address] Bernal. Operative note reviewed. Intra-op cultures pending. continue current antibiotics with vancomycin and zosyn await cultures duration of treatment depends on clinical picture monitor labs and for drug toxicity
[2018-12-30] MEDS: Ketorolac 30 MG/ML VIAL IVP PRN ×2 (00:16→10:07)
[2018-12-30] MEDS: Piperacillin/Tazobactam 3.375 GM in 0.9 % Sodium Chloride Mini Bag 100 ML IVPB SCH ×2 (03:52→12:30)
[2018-12-30] MEDS: *HR* HYDROcodone/Acet 7.5/325 mg TABLET PO PRN ×3 (08:03→21:26)
[2018-12-30] MEDS: Insulin LISPRO 300 UNITS/3 ML VIAL SQ SCH ×3 (08:04→16:35)
[2018-12-30] MEDS ORDERED: Aminoglycoside Consult 1 EACH MC ONE (08:18)
[2018-12-30] MEDS: Gabapentin 400 MG CAPSULE PO SCH ×3 (09:59→21:27)
[2018-12-30] MEDS: rOPINIRole 3 MG, rOPINIRole 2 MG PO SCH ×2 (10:00→21:26)
--- NOTE | 2018-12-30 10:03 | Podiatry Progress Note ---
Date of Encounter: 12/30/18 Time of Encounter: 09:45 - Assessment and Plan (1) Diabetic infection of right foot Current Visit: No Status: Acute Assessment: -Dressing dry and intact without any evidence of strike through, no swelling above or below dressing -Dressing removed -Surgical site without evidence of infection, sutures intact and edges well heladio roximated, no signs of dehiscence noted. No drainage, no odor, no lymphangitis. Mild edema and erythema consistent with inflammatory response. -2/4 PT/DP pulse RLE -Cap refill immediate to all digits -ESR 52, CRP 17 -WBC 5.9 12/29/18 and pt remains afebrile -MRI showed evidence of: 1. Ulceration and sinus tract with subjacent partial osseous destruction and osteomyelitis of the tuft of the distal phalanx of the 1st digit. 2. Cellulitis of the right great toe and remainder of the foot. Mild myositis of the visualized intertarsal musculature. No discrete organized fluid collection identified. 3. Marrow edema within the 4th metatarsal diaphysis, likely stress related marrow edema. No displaced stress fracture identified at this point. Mild marrow edema to a lesser degree at the proximal 2nd and 3rd metatarsals likely degenerative. 4. Degenerative changes as detailed above. -Intra-op cultures pending Plan: -Site flushed with .9NS and pat dry -Painted with betadine -Surgical site covered with Xeroform, 4x4, and Kerlix -Secured with LONNIE -Do not change dressing, call if it becomes saturated, Podiatry to change on Wednesday if patient remains inpatient -Weight bearing heel touch in surgical shoe, please obtain from central supply -ID following, per Dr. Bernal all involved bone was removed with surgical debridement, short term IV antibiotics then switch to PO -Follow up with Dr. Bernal one week after discharge in Podiatry office, please schedule appointment -Will continue to monitor Subjective Interval history: Post op day #3, Right partial 1st toe amputation at interphalangeal joint by Dr. Bernal on 12/27/2018 Patient sleeping, aroused easily with verbal stimuli, oriented x 3. No acute distress noted. Patient denies any chest pain, shortness of breath, or calf pain worse than her chronic discomfort. She denies any fever, chills, nausea, vomiting, or diarrhea. Objective - Vital Signs Vital Signs: Vital Signs Temp Pulse Resp BP Pulse Ox 12/30/18 06:54 98.2 F 62 17 162/93 97 12/30/18 00:02 97.7 F 61 17 138/83 97 12/29/18 20:55 97 12/29/18 20:48 153/87 12/29/18 19:39 97.7 F 65 17 181/93 97 12/29/18 16:20 98.1 F 64 14 164/90 96 12/29/18 11:06 98.0 F 65 16 162/91 95 Intake and Output 12/29/18 12/30/18 12/30/18 23:59 07:59 15:59 Intake Total 100 / 100 350 / 350 Output Total 1250 / 1250 1800 / 1800 Balance -1150 / -1150 -1450 / -1450 Intake: IV Fluids 100 / 100 350 / 350 Zosyn 3.375 GM In 0.9 % Sodium 100 / 100 100 / 100 Chloride (Mini-Bag +) 100 ML @ 25 mls/hr IVPB Q8H [facility] Rx#: [id number] Vancocin 1,250 MG In 0.9 % 250 / 250 Sodium Chloride 250 ML @ 166.67 mls/hr IVPB Q12H [facility] Rx#: [id number] Output: Urine 1250 / 1250 1800 / 1800 Other: # Voids 1 Weight 86.5 kg Blood Glucose* 92 87 Patient Weight 12/30/18 23:59 Weight 86.5 kg - Exam Exam: Constitutional: Patient sleeping aroused easily with verbal stimuli,oriented x 3, no acute distress noted, well nourished Vascular: 2/4 PT/DP pulse RLE. Cap refill immediate to all digits. Skin warm from toes to tibia. No pain with manual calf compression Neurological: Sensation diminished bilateral lower extremities, proprioception abnormal dorsiflexion/plantar flexion Dermatological: Surgical site without any evidence of infection, sutures intact and edges well approximated, mild edema noted and periwound erythema consistent with inflammatory response, no drainage, no odor, no lymphangitis. Musculoskeletal: 4/5 muscle strength, normal tone, movement of exposed toes noted RLE - Lab Result Diagrams: 12/29/18 06:53 12/29/18 06:53 Labs: Abnormal lab results MPV 9.3 fL (9.4-12.4) L 12/29/18 06:53 ESR 70 mm/hr (0-15) H 12/28/18 11:58 Creatinine 0.56 mg/dL (0.60-1.20) L 12/29/18 06:53 Glucose 108 mg/dL (70-105) H 12/29/18 06:53 AST 41 Units/L (13-39) H 12/28/18 19:24 Alkaline Phosphatase 121 Units/L (34-104) H 12/28/18 19:24 Albumin 3.3 g/dL (3.5-5.7) L 12/28/18 19:24 Albumin/Globulin Ratio 0.9 (1.1-2.2) L 12/28/18 19:24 Vancomycin Trough 13 mcg/mL (5-10) H 12/29/18 22:44 U Marijuana (THC) Screen Positive ng/mL (Cutoff = 50) H 12/27/18 13:20 Microbiology, Last 48 Hours 12/27/18 17:21 Surgical Biopsy Culture - Preliminary Right Foot - VTE Documentation of Mechanical Device: Intermittent pneumatic compression device Consult Discharge Plan - Plan Referrals: Elva Isabel, KATHY [Advanced Practice Nurse] - 01/17/19 1:45 pm NONE,PCP [Primary Care Provider] -
[2018-12-30 10:18] LABS: Amylase 28 Units/L (29-103); Lipase 29 Units/L (11-82)
--- NOTE | 2018-12-30 11:17 | Infectious Disease Progress No ---
Date of Encounter: 12/30/18 Time of Encounter: 11:14 - Assessment and Plan (1) Osteomyelitis Current Visit: Yes Status: Acute Location: Right great toe. Causative organism: Unclear. Previous wound cultures in November were positive for Enterobacter cloacae and GBS. Likely secondary to chronic nonhealing diabetic foot ulcer. X-ray of the right foot showed findings consistent with osteomyelitis of the first digit. MRI of the right foot showed findings consistent with osteo-myelitis of the distal phalanx of the first digit and cellulitis. ESR elevated at 52 with a CRP of 17. Podiatry consult. Status post partial amputation of the right great toe 12/27/[address] Bernal. Operative note reviewed. Intra-op cultures no growth. Currently on Vanc and Zosyn. Recommendations: Await blood cultures. Await intra-op cultures. Wound care and activity per the Podiatry team. Will de-escalate antibiotics based on previous cultures. Discontinue Vanc and Zosyn. Start Rocephin 2 grams IV daily. Duration of treatment depends on the clinical picture, but likely total 2-6 weeks. Will plan to follow inflammatory markers and see how the patient does clinically. Monitor renal function for drug toxicity and is just antibiotics. human services assistant to assist with discharge planning. Consult VAT for EPIV placement prior to discharge. Will need weekly CBC, BUN/Cr, ESR, CRP. Will need weekly IV care per protocol. Follow up with ID 01/17/19 at 1345. Qualifiers: Osteomyelitis type: unspecified type Osteomyelitis location: foot Laterality: right Qualified Code(s): M86.9 - Osteomyelitis, unspecified (2) Diabetic infection of right foot Current Visit: No Status: Acute Location: Right foot great toe. Causative organism: Unclear. Likely secondary to chronic non-healing ulcer. Podiatry consulted. Currently on Vanc and Zosyn. (3) Diabetic neuropathy Current Visit: Yes Status: Acute Qualifiers: Diabetes mellitus type: type 2 Diabetes mellitus complication detail: diabetic polyneuropathy Qualified Code(s): E11.42 - Type 2 diabetes mellitus with diabetic polyneuropathy (4) Restless leg syndrome Current Visit: Yes Status: Acute (5) Diabetes Current Visit: Yes Status: Chronic Qualifiers: Diabetes mellitus type: type 2 Diabetes mellitus exterminator termite insulin use: without exterminator termite use Diabetes mellitus complication status: with skin complications Diabetes mellitus complication detail: with foot ulcer Qualified Code(s): E11.621 - Type 2 diabetes mellitus with foot ulcer; L97.509 - Non-pressure chronic ulcer of other part of unspecified foot with unspecified severity (6) Depression Current Visit: Yes Status: Acute The patient states she was on antidepressant medications prior to coming to [place]. She states she has not had her medications for about 4 months she came here. Psych consulted. Appreciate recommendations. Qualifiers: Depression Type: unspecified Qualified Code(s): F32.9 - Major depressive disorder, single episode, unspecified (7) Abdominal pain Current Visit: Yes Status: Acute Epigastric pain with associated nausea. Etiology unclear. History of cholecystectomy. LFTs, amylase, and lipase normal. Pain management per the primary team. Qualifiers: Abdominal location: epigastric Qualified Code(s): R10.13 - Epigastric pain (8) Constipation Current Visit: Yes Status: Acute Reports she has not had a BM in five days. Bowel regimen per the primary team. Discussed with nursing. Qualifiers: Constipation type: unspecified constipation type Qualified Code(s): K59.00 - Constipation, unspecified - Subjective Interval history: Patient seen and examined. No acute events noted overnight. Status post partial amputation of the right great toe 12/27/[address] Bernal. Patient continues to complain of pain in the right foot and right lower extremity. Reports shortness of breath and cough that are at baseline. Reports epigastric discomfort improved, but still there. Reports some nausea, but no vomiting, and states she was able to eat breakfast this morning. Denies urinary complaints. States she feels constipated and has only had a small amount of hard stool. Denies any oral thrush or new skin lesions. Infect Dis PN-Objective Data - Labs CBC & Chem 7: 12/29/18 06:53 12/29/18 06:53 Labs: Laboratory Results - last 24 hr 12/29/18 12/29/18 12/29/18 06:53 07:10 11:34 Sodium 137 Potassium 3.9 Chloride 104 Carbon Dioxide 29 BUN 10 Creatinine 0.56 L Est GFR ( Amer) > 60 Est GFR (Non-Af Amer) > 60 BUN/Creatinine Ratio 18 Glucose 108 H POC Glucose 103 H 109 H Calculated Osmolality 284 Calcium 9.4 Amylase 28 L Lipase 29 Vancomycin Trough 12/29/18 12/29/1812/29/19 16:17 20:36 22:44 Sodium Potassium Chloride Carbon Dioxide BUN Creatinine Est GFR ( Amer) Est GFR (Non-Af Amer) BUN/Creatinine Ratio Glucose POC Glucose 138 H 92 Calculated Osmolality Calcium Amylase Lipase Vancomycin Trough 13 H Cultures: Cultures 12/27/18 17:21 Surgical Biopsy Culture - Preliminary Right Foot Exam - Constitutional Vitals: Temp Pulse Resp BP Pulse Ox 98.2 F 67 18 174/94 97 12/30/18 10:57 12/30/18 10:57 12/30/18 10:57 12/30/18 10:57 12/30/18 10:57 General appearance: cooperative, no acute distress, obese - Head Head exam: Present: atraumatic, normal inspection, normocephalic - Eye Eye exam: Present: EOMI, normal appearance, PERRL Pupils: Present: normal accommodation - ENT ENT exam: Present: mucous membranes moist - Neck Neck exam: Present: normal inspection - Respiratory Respiratory exam: Present: CTAB. Absent: rales, respiratory distress, rhonchi, wheezes - Cardiovascular Cardiovascular exam: Present: RRR, +S1, +S2 - GI/Abdominal GI/Abdominal exam: Present: distended (obese), normal bowel sounds, soft, te nderness (epigastric, RUQ) - Extremities Exam Extremities exam: Present: tenderness (right foot). Absent: normal inspection (Right foot dressing C/d/I.), pedal edema - Neurological Exam Neurological exam: Present: alert, oriented X3, no focal deficits - Psychiatric Psychiatric exam: Present: normal affect, normal mood - Skin Skin exam: Present: dry, intact, normal color, warm - VTE Documentation of Mechanical Device: Intermittent pneumatic compression device Consult Discharge Plan - Plan Referrals: NONE,PCP [Primary Care Provider] - Elva Isabel, SPRAY MACHINE LOADER [Advanced Practice Nurse] - 01/17/19 1:45 pm - Attending Attestation I have personally performed a face to face evaluation on this patient. I have reviewed and agree with the care plan. History and Exam by me shows: Assessment and plan: 1.osteomyelitis of the right great toe causative organism not clear 2.diabetic foot ulcer 3.diabetic neuropathy 4.depression 5.Restless leg syndrome Recommendations: Status post partial amputation of the right great toe 12/27/[address] Bernal. Operative note reviewed. Intra-op cultures pending. continue current antibiotics with vancomycin and zosyn await cultures duration of treatment depends on clinical picture monitor labs and for drug toxicity
--- NOTE | 2018-12-30 13:06 | Internal Med Progress Note ---
Hospitalist Progress Note - Encounter Date of Encounter: 12/30/18 Time of Encounter: 11:45 - Subjective Interval History: No acute events overnight. Had dressing changed today by podiatry. No chest pain, SOB, palpitation, or fever/chills. - Exam Vitals: Temp Pulse Resp BP Pulse Ox 98.2 F 67 18 174/94 97 12/30/18 10:57 12/30/18 10:57 12/30/18 10:57 12/30/18 10:57 12/30/18 10:57 Exam: General: In no acute distress. Respiratory exam: CTAB. Cardiovascular exam: RRR, +S1, +S2. no murmur, gallop, rubs. GI/Abdominal exam: Non-tender, Non-distended, normal bowel sounds, soft, no peritoneal signs. Extremities exam: R foot dressing c/d/i Neurological exam: no focal deficits. - Assessment and Plan (1) Osteomyelitis Current Visit: Yes Status: Acute Assessment and Plan: MRI right foot showed findings consistent with osteomyelitis of the distal phala nx of the right first toe with surrounding cellulitis ESR/CRP also elevated underwent partial R 1st toe amputation on 12/27, POD#3 dressing per podiatry, appreciate input continue vanc/zosyn till intraop culture is resulted. Follow with ID pending intraop path and culture (2) Diabetes Current Visit: Yes Status: Chronic Assessment and Plan: hold off on Trulicity Well controlled on sliding scale, continue (3) Major depressive disorder, recurrent episode, moderate Current Visit: Yes Status: Acute Assessment and Plan: Appreciate psychiatry review, Escitalopram 10 mg QD started outpatient psychiatric services and counseling (4) Hypertension Current Visit: Yes Status: Chronic Assessment and Plan: start lisinopril 5mg QD given the history of diabetes PRN hydralazine (5) DVT prophylaxis Current Visit: Yes Status: Acute Assessment and Plan: EPCD - Time Spent with Patient Total time spent is greater than 50% in coordination of care (as documented) at patient's floor/unit and/or counseling patient: 25 - 35 minutes Plan of Care Discussed with: patient (discussed with RN) Internal Medicine: Result - Labs CBC & Chem 7: 12/29/18 06:53 12/29/18 06:53 Labs: BMP 12/29/18 06:53 Sodium 137 Potassium 3.9 Chloride 104 Carbon Dioxide 29 BUN 10 Creatinine 0.56 L Glucose 108 H Calcium 9.4 - VTE Documentation of Mechanical Device: Intermittent pneumatic compression device Consult Discharge Plan - Plan Referrals: NONE,PCP [Primary Care Provider] - (1) Osteomyelitis Qualifiers: Osteomyelitis type: unspecified type Osteomyelitis location: foot Laterality: right Qualified Code(s): M86.9 - Osteomyelitis, unspecified (2) Diabetes Qualifiers: Diabetes mellitus type: type 2 Diabetes mellitus manager intermediate insulin use: without manager intermediate use Diabetes mellitus complication status: with skin complications Diabetes mellitus complication detail: with foot ulcer Qualified Code(s): E11.621 - Type 2 diabetes mellitus with foot ulcer; L97.509 - Non- pressure chronic ulcer of other part of unspecified foot with unspecified severity (4) Hypertension Qualifiers: Hypertension type: essential hypertension Qualified Code(s): I10 - Essential (primary) hypertension
[2018-12-30] MEDS: cefTRIAXone 2,000 MG in Water for inj. (sterile) 20 ML 20 ML IVPB SCH (14:20)
[2018-12-31] MEDS: *HR* HYDROcodone/Acet 7.5/325 mg TABLET PO PRN ×2 (06:32→14:30)
--- NOTE | 2018-12-31 07:22 | Event Note ---
Date of Encounter: 12/31/18 Time of Encounter: 07:21 I was called by nursing staff to the bedside. Patient had complaint of right- sided calf pain. She is status post partial right first toe amputation performed on 12/27/18. Patient states that she has had right calf pain that has been present since procedure however she is concerned because she has a history of DVT. She is currently not on anticoagulation as she is post op and she is not currently wearing her SCDs. She states that the right calf pain has somewhat increased to 8 out of 10 and is exacerbated by movement of the right foot. She denies any fever, chest pain, shortness of breath, palpitations, pleuritic pain. Will order Doppler ultrasound of right lower extremity to assess for DVT. Gen.: Vitals noted. No acute distress. AAOx3, resting comfortably in bed with significant other lying in bed beside her. Cardiac: RRR, no murmur, +S1/S2, radial and posterior tibial pulses 3+ and symmetrical, capillary refill less than 2 seconds. Pulmonary: CTA bilaterally, no wheezes, rales or rhonchi, equal chest expansion, unlabored breathing Abdomen: soft, nontender, BS noted, no guarding, no palpable HSM MSK: ROM intact, no joint swelling noted, gait no assessed while in bed. right foot is dressed, dressing is dry. Temperature bilateral lower extremities is equal to touch, patient has mild edema on right side, patient does have tenderness to palpation of the right calf, right calf feels more tense to palpation in comparison to left.
[2018-12-31] MEDS: cefTRIAXone 2,000 MG in Water for inj. (sterile) 20 ML 20 ML IVPB SCH (09:02)
[2018-12-31] MEDS: Gabapentin 400 MG CAPSULE PO SCH (09:03)
[2018-12-31] MEDS: rOPINIRole 3 MG, rOPINIRole 2 MG PO SCH (09:03)
[2018-12-31] MEDS: Insulin LISPRO 300 UNITS/3 ML VIAL SQ SCH ×2 (09:04→11:36)
[2018-12-31] MEDS: Ketorolac 30 MG/ML VIAL IVP PRN (10:30)
[2018-12-31 11:12] VITALS: BP 155/88
--- NOTE | 2018-12-31 13:49 | Discharge Summary ---
- NOTES TO OUTPATIENT PROVIDER Notes to Outpatient Provider: Recommended to follow up with her PCP within the next 2-3 days Orders not resulted at time of discharge: Pending orders 12/27/18 16:57 Surgical Pathology [PTH] Routine 12/27/18 17:21 Culture,Anaerobic [RM] Routine Date of Encounter: 12/31/18 Time of Encounter: 13:41 - Discharge Diagnosis (1) Osteomyelitis Priority: Primary Status: Acute Qualifiers: Osteomyelitis type: unspecified type Osteomyelitis location: foot Laterality: right Qualified Code(s): M86.9 - Osteomyelitis, unspecified (2) DVT prophylaxis Priority: Secondary Status: Chronic (3) Diabetes Priority: Secondary Status: Chronic Qualifiers: Diabetes mellitus type: type 2 Diabetes mellitus member of parliament insulin use: without usp use Diabetes mellitus complication status: with skin complications Diabetes mellitus complication detail: with foot ulcer Qualified Code(s): E11.621 - Type 2 diabetes mellitus with foot ulcer; L97.509 - Non-pressure chronic ulcer of other part of unspecified foot with unspecified severity (4) Major depressive disorder, recurrent episode, moderate Priority: Secondary Status: Acute (5) Hypertension Priority: Secondary Status: Chronic Qualifiers: Hypertension type: essential hypertension Qualified Code(s): I10 - Essential (primary) hypertension Hospital course: Ms. Malloy is a 63 year old female PMH arthritis, CHF, diabetes, presented to [facility] for increased swelling, redness and pain in her right great toe for about 1 week. She had a temperature at home of 102 the day before admission. She is also noted some purulent drainage from the toe as well. MR/MR foot RT wo/w con IMPRESSION: 1. Ulceration and sinus tract with subjacent partial osseous destruction and osteomyelitis of the tuft of the distal phalanx of the 1st digit. 2. Cellulitis of the right great toe and remainder of the foot. Mild myositis of the visualized intertarsal musculature. No discrete organized fluid collection identified. 3. Marrow edema within the 4th metatarsal diaphysis, likely stress related marrow edema. No displaced stress fracture identified at this point. Mild marrow edema to a lesser degree at the proximal 2nd and 3rd metatarsals likely degenerative. 4. Degenerative changes as detailed above. Patient admitted to the hospital due to Osteomyelitis, started on broad spectrum IV antibiotics. Education Teacher consulted, patient underwent Right partial 1st toe amputation at interphalangeal joint. ID consulted to manage antibiotics and recommended to wait for final operative wound culture report to decide antibiotic length and which antibiotic to discharge the patient on, but the patient left AMA because she is moving to [place] with some family members and if she did not leave the hospital she would miss her ride. Patient was educated about the importance of waiting in the hospital for the test results to discharge her on the appropriate antibiotics. Patient left AMA. oral antibiotics and pain medications prescribed. recommended to follow up with her PCP to coordinate to see a high school auto repair teacher within a week. - Time Spent with Patient Total time spent providing and/or coordinating discharge services: Time spent: Greater than 30 minutes (35) - Discharge Medications Prescriptions: New HYDROcodone/Acet 7.5/325 mg [[place] 7.5-325 mg] 1 tab PO Q6HR PRN 7 Days #15 tablet PRN Reason: Severe Pain Amoxicillin/Clavulanate [Augmentin] 875 mg PO BIDWM 14 Days #28 tablet Escitalopram [Lexapro] 10 mg PO DAILY 30 Days #30 tablet Lisinopril [Zestril] 5 mg PO DAILY 30 Days #30 tablet Continue Ropinirole HCl [Requip] 5 mg PO BID Potassium Chloride [Klor-Con 10] 10 meq PO DAILY Furosemide [Lasix] 40 mg PO BID Dulaglutide [Trulicity] 0.75 mg SQ FR Gabapentin [Neurontin] 800 mg PO TID Home Medications: Potassium Chloride [Klor-Con 10] 10 meq PO DAILY 05/28/17 [History] Ropinirole HCl [Requip] 5 mg PO BID 05/28/17 [History] Furosemide [Lasix] 40 mg PO BID 01/11/18 [History] Dulaglutide [Trulicity] 0.75 mg SQ FR 12/24/18 [History] Gabapentin [Neurontin] 800 mg PO TID 12/24/18 [History] Amoxicillin/Clavulanate [Augmentin] 875 mg PO BIDWM 14 Days #28 tablet 12/31/18 [Rx] Escitalopram [Lexapro] 10 mg PO DAILY 30 Days #30 tablet 12/31/18 [Rx] HYDROcodone/Acet 7.5/325 mg [[place] 7.5-325 mg] 1 tab PO Q6HR PRN 7 Days #15 tablet 12/31/18 [Rx] Lisinopril [Zestril] 5 mg PO DAILY 30 Days #30 tablet 12/31/18 [Rx] Allergies/Adverse Reactions: Allergy/AdvReac Type Severity Reaction Status Date / Time No Known Allergies Allergy Verified 12/25/18 15:47 Date of admission: 12/26/18 18:45 Primary care physician: PCP NONE Consults: 12/24/18 18:57 Consult to Nutrition [CONS] Routine Comment: Consulting Provider: NUTRITION Reason for Dietary Consult: MST Score Consult to Pastoral Services [CONS] Routine Comment: Consult to Mineral Surveying Technician [CONS] Routine Reason for SW Consult: Emotional support. 12/24/18 21:23 Consult to Podiatry [CONS] Routine Consulting Provider: [facility] Reason for Consult: Osteomyelitis in 1st digit right foot Call Completed: No 12/26/18 11:27 Consult to Infectious Diseases [CONS] Routine Consulting Provider: Infectious Disease [place] Reason for Consult: osteomyelitis Call Completed: Yes 12/27/18 10:41 Consult to Psychiatry [CONS] Routine Consulting Provider: Psychiatry [facility] Reason consult: Medication recommendation Other reason and/or additional details: depression - Constitutional Vitals: Temp Pulse Resp BP Pulse Ox 98.0 F 74 18 155/88 95 12/31/18 11:12 12/31/18 11:12 12/31/18 11:12 12/31/18 11:12 12/31/18 11:12 General appearance: Present: cooperative, A&O X 3, pleasant, no acute distress, answers questions appropriately Exam: vitals: reviewed General: In no acute distress. Respiratory exam: CTAB. Cardiovascular exam: RRR, +S1, +S2. no murmur, gallop, rubs. GI/Abdominal exam: Non-tender, Non-distended, normal bowel sounds, soft, no peritoneal signs. Extremities exam: R foot dressing c/d/i. no edema Neurological exam: no focal deficits. - Patient Status Disposition: Left Against Medical Advice - Discharge Instructions Instructions: Toe Amputation (DC) Follow Up With: Beltran Bernal, DPM [Partnered Physician] - Elva Isabel, ELECTRICAL MACHINIST [Advanced Practice Nurse] - 01/17/19 1:45 pm NONE,PCP [Primary Care Provider] - - Diet and Activity Activity: resume usual activities as tolerated Diet: diabetic diet, low salt diet - VTE Documentation of Mechanical Device: Intermittent pneumatic compression device
== END 2018-12-31 14:42 | disposition left against medical advice (07) | DRG 617 ==
LOC: 3NENU → SUATTDRO 18:28
PROVIDERS: ADMIT Internal Medicine; ATTEND Internal Medicine